=== PATIENT | female | born 1940 | race Caucasian/White ===

== ENCOUNTER 2017-03-15 08:55 | Inpatient (IN) | payer OTHER, MEDICARE ==
[~2017-03-15] VITALS: Ht 162.6 cm; Wt 72.3 kg
--- NOTE | 2017-03-15 09:28 | NUR ---
lab called and needs a redraw of the sst.
--- NOTE | 2017-03-15 09:28 | ED DYSPNEA/ASTHMA COMPLAINT ---
History of Present Illness General Chief Complaint: Dyspnea (COPD, CHF, Other) Stated Complaint: sob Source: patient, old records, EMS Exam Limitations: no limitations Vital Signs & Intake/Output Vital Signs & Intake/Output Vital Signs Date Time Temp Pulse Resp B/P B/P Pulse O2 O2 Flow FiO2 Mean Ox Delivery Rate 03/15 1451 97.6 64 20 143/73 94 Nasal 1.0L Cannula 03/15 1235 98.0 74 20 157/82 93 Nasal 1.0L Cannula 03/15 1035 97.1 82 18 162/72 94 Nasal 2.0L Cannula 03/15 0931 92 Nasal 4.0L Cannula 03/15 0924 97.0 104 22 170/84 92 Nasal 4.0L Cannula Allergies Coded Allergies: MDX - Broccoli (BROCCOLI) (UNKNOWN 02/11/14) MDX - Cabbage (CABBAGE) (UNKNOWN 02/11/14) MDX - [place] (CUCUMBER) (UNKNOWN 02/11/14) Reconcile Medications Carvedilol 25 MG TABLET 1 TAB PO BID BP (Reported) Diltiazem HCl (Cardizem Cd) 240 MG CAP.ER.24H 1 CAP PO DAILY HTN (Reported) Estradiol (Estrace) 0.01 % CREAM.APPL 1 GM VG QW HORMONE (Reported) Rivaroxaban (Xarelto) 20 MG TABLET 1 TAB PO DAILY BLOOD THINNER (Reported) with food Sitagliptin Phos/Metformin HCl (Janumet 50-1,000 MG Tablet) 50 MG-1,000 MG TABLET 1 TAB PO BID SUGAR (Reported) Triage Nurses Notes Reviewed? yes Onset: Abrupt Duration: hour(s):, continues in ED, waxing and waning Severity: severe Activities at Onset: rest Prior Episodes/Possible Cause: occasional episodes Modifying Factors: Improves With: other (EXERTION). HPI: Patient presents for evaluation of shortness of breath and chest pain that began with a cough productive of nonbloody yellow sputum last night. She also had a runny nose and fever but no GI symptoms. Patient states her chest pain is "in the center" of her chest. Patient symptoms have been constant and moderate to severe and get worse with exertion. Past History Travel History Traveled to [place] past 21 day No Medical History Any Pertinent Medical History? see below for history History of MRSA: No History of VRE: No History of CDIFF: No Pneumonia Vaccine: 08/26/12 Influenza Vaccine: 09/15/13 Surgical History Surgical History: non-contributory Psychosocial History Who do you live with Spouse Services at Home None What is your primary language Upper Sorbian Tobacco Use: Never used Family History Family History, If Any: MOTHER ([place] at age of 55). Relation not specified for: FH: myocardial infarction Hx Contributory? No Review of Systems Review of Systems Constitutional: Reports: no symptoms. EENTM: Reports: no symptoms. Respiratory: Reports: see HPI. Cardiovascular: Reports: see HPI. GI: Reports: no symptoms. Genitourinary: Reports: no symptoms. Musculoskeletal: Reports: no symptoms. Skin: Reports: no symptoms. Neurological/Psychological: Reports: no symptoms. Hematologic/Endocrine: Reports: no symptoms. Immunologic/Allergic: Reports: no symptoms. All Other Systems: Reviewed and Negative Physical Exam Physical Exam Respiratory: SEE BELOW Comments: Gen.: Well-nourished, well-developed, no acute respiratory distress. Head: Normocephalic, atraumatic. Eyes: Normal inspection bilaterally Ears: Normal inspection bilaterally Nose: Normal inspection Throat/mouth : Moist mucosa Neck: Supple, full range of motion, no goiter Heart: Distant heart sounds but otherwise IRRegular rate and rhythm, no murmurs rubs or gallops Lungs: Bibasilar crackles, particularly posteriorly, with diminished air entry globally Chest: Nontender Back: Normal range of motion Abdomen: Soft, nontender, nondistended, normal bowel sounds Extremities: Normal range of motion grossly, equal radial pulses, no cyanosis clubbing or edema,calves non tender Neurologic: Cranial nerves grossly intact, speech is clear Skin: warm and dry Psychiatric: Calm, cooperative, no apparent delusions or hallucinations Core Measures ACS in differential dx? No Severe Sepsis Present: No Septic Shock Present: No Progress Differential Diagnosis: asthma, AMI, bronchitis, CHF, COPD, pulmonary embolism, pneumonia, pneumothorax, unstable angina Plan of Care: Orders Procedure Date/time Status Heart Healthy Diet 03/15 D Active Patient Data 03/15 1533 Active Admit to inpatient 03/15 1527 Active Add-on Test (ER Only) 03/15 0927 Active D-DIMER 03/15 0910 Complete B-TYPE NATRIURETIC PEP (BNP) 03/15 0910 Complete EKG 03/15 0910 Active BLOOD CULTURE 03/15 0909 Active TROPONIN LEVEL 04/20 0909 Complete COMPREHENSIVE METABOLIC PANEL 03/15 909 Complete CBC WITHOUT DIFFERENTIAL 03/15 909 Complete Laboratory Tests 03/15/17940: Anion Gap 12, Estimated GFR > 60, BUN/Creatinine Ratio 20.0, Glucose 405 H, Calcium 9.1, Total Bilirubin 1.3, AST 23, ALT 38, Alkaline Phosphatase 117, Troponin I < 0.01, Anm-A-Sgmeqwddwsm Pept 2980 H, Total Protein 6.9, Albumin 3.8, Globulin 3.1, Albumin/Globulin Ratio 1.2 03/15/17913: CBC w Diff NO MAN DIFF REQ, RBC 4.83, MCV 84.7, MCH 29.2, RDW 14.5, MPV 9.1, Gran % 84.4 H, Lymphocytes % 9.9 L, Monocytes % 4.3, Eosinophils % 1.4, Basophils % 0 L, Absolute Granulocytes 10.1 H, Absolute Lymphocytes 1.2, Absolute Monocytes 0.5, Absolute Eosinophils 0.2, Absolute Basophils 0, PUBS MCHC 34.5 03/15/17909: D-Dimer < 200 Microbiology 03/15 914 BLOOD: Blood Culture - RECD 03/15 910 BLOOD: Blood Culture - RECD Diagnostic Imaging: Discussed w/RAD: Radiology Read. CXR Impression: PATIENT: TOMMY BECKWITH PRESENT AGE: 76 PATIENT ACCOUNT NO: [id number] : 40 LOCATION: [facility] ORDERING PHYSICIAN: MARION BERMUDEZ MD SERVICE DATE: 03/15/17 EXAM TYPE: RAD - XRY-PORTABLE CHEST XRAY EXAMINATION: XR PORTABLE CHEST CLINICAL INFORMATION: Dyspnea and cough. COMPARISON: 02/13/2014 TECHNIQUE: Portable AP view of the chest was obtained. FINDINGS: Left chest wall 3-lead AICD/pacer remains in place. Low lung volumes. Central vascular prominence without overt edema. No pleural effusion or pneumothorax. The cardiomediastinal silhouette remains prominent, with a calcified aorta. IMPRESSION: Central vascular prominence without overt edema. DICTATED BY: LOGAN DAVIES,BALDEMAR DATE/TIME DICTATED:03/15/17949 PHYSICIAN/INTERNIST:BELLO DATE/TIME TRANSCRIBED:03/15/17949 CONFIDENTIAL, DO NOT COPY WITHOUT APPROPRIATE AUTHORIZATION. <Electronically signed in Other Vendor System> SIGNED BY: LOGAN DAVIES,BALDEMAR 03/15/17 0954 Initial ED EKG: AFIB, nonspecific ST T wave chg Prior EKG: unchanged Comments: 03/15/2017 11:26:36 AM I have updated and on her test results. She feels well with the oxygen. I have weaned to 1 L/m (her oxygen saturation currently 92%). Furosemide has been ordered. She is quite conversant at this point and is agreeable to returning home once she begins to diurese. 03/15/2017 1:00:16 PM patient feels well with oxygen saturation 93% on 1 L nasal cannula. I have discontinued her oxygen. She states that she has diuresed considerably while here in the emergency department. Plan ambulatory pulse ox and final disposition. Departure Departure Disposition: STILL A PATIENT Condition: Stable Clinical Impression Primary Impression: CHF (congestive heart failure) Qualifiers: Congestive heart failure type: unspecified congestive heart failure type Congestive heart failure chronicity: acute Qualified Code: I50.9 - Heart failure, unspecified Referrals: LIZA DAVIES,MYL (PCP/Family) Departure Forms: Customer Survey General Discharge Information Admission Note Spoke With: WAYNE DAVIES,ZI Rincon Documentation of Exam: Documentation of any treatments & extenuating circumstances including Concerns Regarding Discharge (functional status, medication knowledge or non-compliance, living conditions, etc.) that warrant an admission rather than observation: Patient has congestive heart failure with hypoxia on room air. She becomes dyspneic with exertion. I feel she is a poor candidate for outpatient management given her exertional dyspnea. I feel compliance with outpatient treatment could cause worsening dyspnea, hypoxia, chest pain or respiratory failure. She was treated with diuretics in the emergency department but is still oxygen dependent. I feel she now requires hospitalization with oxygen supplementation to maintain normal oxygen saturations. I feel she also requires serial troponins and EKGs and monitoring of intake and output. A negative fluid balance should be assured and cardiology consultation should be considered. Given this patient's advanced age and medical comorbidities I feel her treatment will be prolonged and likely complicated. I predict she will require a multiple day hospitalization. Critical Care Note Critical Care Note Critical Care Time: 30-74 min
--- NOTE | 2017-03-15 09:37 | NUR ---
76 YEAR OLD FEMALE TO ER VIA AMBULANCE FROM [facility] FOR SUDDEN ONSET THIS AM OF SOB. PT ALERT AND ORIENTED , STATES THAT SHE STARTED WITH COUGH PRODUCTIVE OF YELLOW SPUTUM LAST PM, WAS UP ALL NIGHT COUGHING, PT AFEBRILE AT THIS TIME TEMP 97.0, PT ARRIVED ON 4L O2 VIA NC AND O2 SAT 92 % , PT IS NOT O2 DEPENDENT AT HOME. 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 NIDDM FINGERSTICK 413. ON EMS ARRIVAL TO PTS HOME SHE COMPLAINED OF HAVING NON RADIATING MID CHEST PAIN, DENIES CP AT THIS TIME.
[2017-03-15 09:43] LABS: ABSOLUTE BASOPHIL COUNT 0 /CUMM (0.0-0.2); ABSOLUTE EOSINOPHIL COUNT 0.2 /CUMM (0.0-0.7); ABSOLUTE GRANULOCYTE CT 10.1 /CUMM (1.4-6.5); ABSOLUTE LYMPH COUNT 1.2 /CUMM (1.2-3.4); ABSOLUTE MONOCYTE COUNT 0.5 /CUMM (0.10-0.60); BASOPHIL % 0 % (0.0-2.0); EOSINOPHIL % 1.4 % (0-5); GRANULOCYTE % 84.4 % (42.2-75.2); MEAN CORPUSCULAR HGB 29.2 PG (27.0-31.0); MEAN CORPUSCULAR HGB CONC 34.5 G/DL (33.0-37.0); MEAN CORPUSCULAR VOLUME 84.7 FL (81.0-99.0); MEAN PLATELET VOLUME 9.1 FL (7.4-10.4); PLATELET COUNT 254 /CUMM (130-400); RBC DISTRIBUTION WIDTH 14.5 % (11.5-14.5); RED BLOOD CELL CT 4.83 /CUMM (4.20-5.40)
--- NOTE | 2017-03-15 09:44 | NUR ---
LABS DRAWN AND SENT BY THIS [facility]ST BLUE, SST, LAV, CROFT
--- NOTE | 2017-03-15 09:45 | NUR ---
PT. PROVIDED WITH CUP OF ICE WATER, OK PERCasi BERMUDEZ
--- NOTE | 2017-03-15 09:54 | RADIOLOGY REPORT ---
EXAMINATION: XR PORTABLE CHEST CLINICAL INFORMATION: Dyspnea and cough. COMPARISON: 02/13/2014 TECHNIQUE: Portable AP view of the chest was obtained. FINDINGS: Left chest wall 3-lead AICD/pacer remains in place. Low lung volumes. Central vascular prominence without overt edema. No pleural effusion or pneumothorax. The cardiomediastinal silhouette remains prominent, with a calcified aorta. IMPRESSION: Central vascular prominence without overt edema.
--- NOTE | 2017-03-15 10:30 | NUR ---
PT AWAKE AND ALERT, ASKING WHEN SHE WILL BE ABLE TO GO HOME, DENIES CP, AFIB ON MONITOR HR 80-104, OXYGEN DECREASED TO 2L VIA NC AND O2 SAT 94 % AT THIS TIME.
--- NOTE | 2017-03-15 12:40 | NUR ---
PT RESTING ON STRETCHER , COMPLAINS THAT SHE HAS BEEN UP TO COMMODE 5 TIMES URINATING. O2 SAT 93 % ON 1L VIA NC, DENIES FEELING SOB AT THIS TIME.
[2017-03-15] MEDS ORDERED: JANUMET 50-1,01 EACH PO (12:42)
[2017-03-15] MEDS ORDERED: CARDIZEM CD240 M1 PO (12:43)
[2017-03-15] MEDS ORDERED: CARVEDILOL25 M1 PO (12:45)
[2017-03-15] MEDS ORDERED: ESTRACE42.5 GM VG (12:45)
[2017-03-15] MEDS ORDERED: XARELTO20 M2 PO (12:46)
--- NOTE | 2017-03-15 13:17 | NUR ---
02 SAT 90-9 % WITHOUT OOXYGEN.
--- NOTE | 2017-03-15 13:17 | NUR ---
OXYGEN REMOVED BY DR. BERMUDEZ @ 1300.
--- NOTE | 2017-03-15 13:25 | NUR ---
AMBULATED IN SIEGEL (APPROXIMATELY 50 FEET, WITHOUT 02). 02 SAT 88-90%,C/O DIZZINESS WITH WALKING.
--- NOTE | 2017-03-15 13:43 | NUR ---
DR BERMUDEZ AT BEDSIDE TO DISCUSS PLAN OF CARE WITH PT , PT AWARE THAT SHE IS TO BE ADMITTED TO HOSPITAL.
--- NOTE | 2017-03-15 13:56 | NUR ---
PT VOIDED 2800 CC ON COMMODE, CLEAR YELLOW URINE. PT SITTING UP ON STRETCHER WITH FOOD MENU.
--- NOTE | 2017-03-15 14:51 | NUR ---
PT AWAKE ALERT AND ORIENTED, DENIES FEELING SOB AT REST, O2 SAT 94 % ON 1L VIA NC. STATES THAT SHE DOES GET SOB WHEN SHE GETS UP TO COMMODE. AFIB ON MONITOR WITH HR 64. PT AWARE THAT WE ARE WAITING ON ROOM ASSIGNMENT AT THIS TIME
--- NOTE | 2017-03-15 15:27 | NUR ---
ASSUMED CARE OF PT, PT RESTING COMFORTABLY ON STRETCHER, CRACKLES HEARD IN LLL, ALL OTHER LUNG JEFFERSON CTA. PT DENIES ANY CP, NAUSEA, VOMITING. REPORTING DYSPNEA CONTINUES WHEN AMBULATING UP AND DOWN FROM STRETCHER TO BEDSIDE COMMODE. REPORTING THAT SOB HAS IMPROVED GREATLY SINCE VOIDING APPROX 3 L OF URINE AFTER IV LASIX.
--- NOTE | 2017-03-15 15:40 | NUR ---
HEART HEALTHY DINNER TRAY ORDERED AND DIET ORDER PLACED PER DR BERMUDEZ
--- NOTE | 2017-03-15 17:04 | NUR ---
BED ASSIGNMENT [id number]
[2017-03-15] MEDS ORDERED: DIOVAN320 M1 PO (17:09)
--- NOTE | 2017-03-15 17:10 | History & Physical ---
ALEC ZABALA MD 03/15/17 0994: General Information and HPI MD Statement: I have seen and personally examined TOMMY BECKWITH Niels and documented this H&P. The patient is a 76 year old F who presented with a patient stated chief complaint of [shortness of breath]. Source of Information: patient, old records, EMS Exam Limitations: no limitations History of Present Illness: Patient is a 76 YO F with PMH significant for Dilated nonischaemic cardiomyopathy (EF 20-25% - 02/11/14), Medtronic biventricular AICD (jul 2009), CHF, Persistent AF (on xarelto), CAD, Diabetes mellitus came to the ER today with sudden onset of shortness of breath at rest this morning. She was well till yesterday night when she developed cough with yellowish phlegm production which made her sleepless throughout that night. Today morning she suddnely developed shortness of breath, chest heaviness (few mins), wheezing at rest while watching TV. She came to ER followed by that. She recently came from [place] 1-1/2 week ago (spent entire winter in [place]). At baseline she had shortness of breath and chest heaviness with exertion ( such as taking stairs), resolves with rest, 2 Pillow orthopnea. By the time she reached ER her chest heaviness resolved, still short of breath. She received a single dose of lasix 40mg IV which made her symptoms much better. She reports she urinated well after the medication given. Denies any nausea, vomiting, dizziness, lightheadedness, fainting episodes, heart racing. Allergies/Medications Allergies: Coded Allergies: MDX - Broccoli (BROCCOLI) (UNKNOWN 02/11/14) MDX - Cabbage (CABBAGE) (UNKNOWN 02/11/14) MDX - [place] (CUCUMBER) (UNKNOWN 02/11/14) Home Med list Carvedilol 25 MG TABLET 1.5 TAB PO BID BP (Reported) Diltiazem HCl (Cartia Xt) 240 MG CAP.ER.24H 1 TAB PO DAILY afib (Reported) Estradiol (Estrace) 0.01 % CREAM.APPL 1 GM VG QW HORMONE (Reported) Furosemide (Lasix) 20 MG TABLET 1 TAB PO BID CHF (Reported) Glimepiride (Amaryl) 4 MG TABLET 1 TAB PO DAILY DM (Reported) Rivaroxaban (Xarelto) 20 MG TABLET 1 TAB PO AT BEDTIME afib (Reported) with food Sitagliptin Phos/Metformin HCl (Janumet 50-1,000 MG Tablet) 50 MG-1,000 MG TABLET 1 TAB PO BID SUGAR (Reported) Valsartan (Diovan) 320 MG TABLET 1 TAB PO DAILY htn (Reported) Compliance With Home Meds: GOOD Past History Travel History Traveled to [place] past 21 day No Medical History Neurological: NONE EENT: NONE Cardiovascular: AFIB, CHF, hypertension, hyperlipidemia Respiratory: NONE Gastrointestinal: NONE Hepatic: NONE Renal: NONE Musculoskeletal: NONE Psychiatric: NONE Endocrine: diabetes Blood Disorders: DVT Cancer(s): NONE WATER PUMP SERVICER/Reproductive: NONE History of MRSA: No History of VRE: No History of CDIFF: No Surgical History Surgical History: non-contributory Past Family/Social History Family History Relations & Conditions if any MOTHER ([place] at age of 55). Relation not specified for: FH: myocardial infarction Psychosocial History Where do you live? Home Who Do You Live With? spouse Services at Home: None Smoking Status: Never Smoked ETOH Use: every day a glass of wine Illicit Drug Use: denies illicit drug use Functional Ability ADLs Independent: dressing, eating, toileting, bathing. Ambulation: independent IADLs Independent: shopping, housework, finances, food prep, telephone, transportation , medication admin. Review of Systems Review of Systems Constitutional: Reports: see HPI. Cardiovascular: Reports: orthopena. Respiratory: Reports: cough, short of breath, sputum production. GI: Reports: see HPI. Genitourinary: Reports: see HPI. Musculoskeletal: Reports: see HPI. Comments ROS negative except the above. Exam & Diagnostic Data Last 24 Hrs of Vital Signs/I&O Vital Signs Date Time Temp Pulse Resp B/P B/P Pulse O2 O2 Flow FiO2 Mean Ox Delivery Rate 03/15 1451 97.6 64 20 143/73 94 Nasal 1.0L Cannula 03/15 1235 98.0 74 20 157/82 93 Nasal 1.0L Cannula 03/15 1035 97.1 82 18 162/72 94 Nasal 2.0L Cannula 03/15 0931 92 Nasal 4.0L Cannula 03/15 0924 97.0 104 22 170/84 92 Nasal 4.0L Cannula Intake & Output 03/15 1600 03/15 0800 03/15 0000 Intake Total 500 Output Total 2800 Balance -2300 Intake, Oral 500 Output, Urine 2800 Patient 77.111 kg Weight Physical Exam General Appearance Alert, Oriented X3, Cooperative, Mild Distress Skin No Rashes, No Breakdown HEENT Atraumatic, PERRLA, EOMI Neck JVD present Cardiovascular Normal S1, Normal S2, No Murmurs Lungs Normal Air Movement, mild bibasilar crackles present Abdomen Normal Bowel Sounds, Soft, No Tenderness Neurological Normal Gait, Normal Speech, Strength at 5/5 X4 Ext, Normal Tone Extremities No Clubbing, No Cyanosis, edema present Vascular Normal Pulses, Pulses Symmetrical Last 24 Hrs of Labs/Wagner: Laboratory Tests 03/15/17 1707: Troponin I < 0.01 03/15/17 0941: Anion Gap 12, Estimated GFR > 60, BUN/Creatinine Ratio 20.0, Glucose 405 H, Calcium 9.1, Total Bilirubin 1.3, AST 23, ALT 38, Alkaline Phosphatase 117, Troponin I < 0.01, Htd-F-Coegautjnyw Pept 2980 H, Total Protein 6.9, Albumin 3.8, Globulin 3.1, Albumin/Globulin Ratio 1.2, TSH Pending, Free T4 1.37 03/15/17 0914: CBC w Diff NO MAN DIFF REQ, RBC 4.83, MCV 84.7, MCH 29.2, RDW 14.5, MPV 9.1, Gran % 84.4 H, Lymphocytes % 9.9 L, Monocytes % 4.3, Eosinophils % 1.4, Basophils % 0 L, Absolute Granulocytes 10.1 H, Absolute Lymphocytes 1.2, Absolute Monocytes 0.5, Absolute Eosinophils 0.2, Absolute Basophils 0, PUBS MCHC 34.5 03/15/17 0910: D-Dimer < 200 Microbiology 03/15 914 BLOOD: Blood Culture - RECD 03/15 910 BLOOD: Blood Culture - RECD Diagnostic Data EKG Results Atrial Fibrillation with HR 111 QTc 522 CXR Results IMPRESSION: Central vascular prominence without overt edema. Assessment/Plan Assessment: Patient is a 76 YO Diabetic Female with PMH significant for Dilated nonischaemic cardiomyopathy (EF 20-25% - 02/11/14), AICD, AF presented to ER with Dyspnea and chest heaviness. ER Course VS Afebrile, [place] 104, RR 22, BP 170/84mmHg, on 4L oxygen initially (later came down to 1L with diuresis) Significant labs include Blood glucose 405, ProBNP 2980, K of 3.9. CXR shows Central vascular prominence without overt edema. Last ECHO - 02/11/14 LVEF 20-25% with anterior wall, anteroseptum, and inferoapex are akinetic, remaining gonzales moderately hypokinetic. RVSP >50mmHg. Plan Admitted to telemetry floor Acute decompensated congestive heart failure * Serail Trops and EKG's X 3 to rule out ischaemic event, TSH and freeT4. * Received a single dose of 40mg IV lasix in ER - we will continue diuresisg her with IV diuretics for now (home lasix 20mg BID PO) * ECHO * 2 gm sodium diet, Strict In's and Out's, daily weight. H/o nonischaemic cardiomyopathy (last EF 20-25%) with AICD in place * On carvedilol 37.5mg BID, Losartan 100mg daily - we will continue them for now. Persistent Atrial Fibrillation * On xarelto for anticoagulation and Cardizem 240mg ER for rate control - we will continue for now Uncontrolled diabetes Her sugars in ER are in 400's, reports compliant with medications * would check HbA1C * Novolog sliding scale and accuchecks DVT prophylaxis * On xarelto Code Status * Full Code As Ranked By This Provider Problem List: 1. Atrial fibrillation 2. Diabetes 3. CHF (congestive heart failure) Qualifiers Congestive heart failure type: unspecified congestive heart failure type Congestive heart failure chronicity: acute Qualified Code: I50.9 - Heart failure , unspecified 4. Systolic CHF, acute on chronic Core Measures/Miscellaneous Acute Coronary Syndrome ACS Diagnosis: No Cerebrovascular Accident CVA/TIA Diagnosis: No Congestive Heart Failure CHF Diagnosis: No Venous Thromboembolism VTE Risk Factors: Immobility, paresis No [facility] VTE prophylaxis d/t: No contraindications No VTE Pharm Prophylaxis d/t: No contraindications VTE Diagnosis: No VTE Type: NONE VTE Confirmed by (Test): NONE Severe Sepsis Severe Sepsis Present: No Septic Shock Septic Shock Present: No Miscellaneous Documentation Attending Case Discussed With: IZ BLACK MD Primary Care Physician: LIZA DAVIES,MYL Patient sees these Specialists Level of Patient Care: Telemetry STUART MCLAIN MD 03/15/17 1806: Resident Review Statement Resident Statement: examined this patient, discussed with business management intern, agreed with business management intern, reviewed EMR data (avail), reviewed images, amended to note Other Findings: This is 76-year-old female this is 76-year-old female with past medical history of known ischemic cardiomyopathy with EF of 20-25% status post Medtronic BiV AICD, chronic atrial fibrillation on Xarelto, type 2 diabetes presented from home with chief complaint of acute onset shortness of breath associated with cough and an episode of chest pain. Patient was in her usual health up until yesterday evening. Last night all of a sudden she started having dry cough which kept her up all throughout the night. She also reported occasional yellowish sputum production. Patient was not able to sleep due to persistent cough, regularly she uses 2 pillows for sleep. This morning around 8 AM after taking all her blood pressure medication, when she was watching TV all of a sudden she got significantly short of breath, which exacerbated on minimal exertion/ambulation and had an episode of chest heaviness which lasted for about 10 minutes and subsided spontaneously. Patient remained short of breath and that point she called her daughter called EMS and was brought in to ER for further evaluation. On arrival patient noted short of breath and was put in 2 L supplemental O2 with saturation of around 90-92%. Chest x-ray was done which showed central vascular prominence and patient received 40 mg IV Lasix with significant diuresis of about 2.5 L. On evaluation patient noted in no acute distress complaining of shortness of breath only on ambulation but denied any chest pain, pressure, palpitation, dizziness, lightheadedness, orthopnea, nausea, vomiting, abdominal pain or cough. Patient reports avoiding salt in her diet and denies any medicine noncompliance. Denies any significant weight gain or leg swelling. Her vitals on admission were T 97, HR 104, RR 22, BP 170/84, O2 sat 92% on 2 L On physical exam patient is alert oriented 3 in no acute distress, HEENT PERRLA EOMI, neck supple, noted elevated JVD of 8-9 cm, heart S1-S2 normal without murmur, lungs noted faint basilar crackles, abdomen soft nontender nondistended with preserved bowel sounds, no peripheral edema, no focal gross neuro deficit. Labs were significant for leukocytosis of 12,000 with granulocytes of 86%, H&H 14.1/41, K3.9, NA 138, BUN 12, cr. 0.6, blood glucose 405, AG 12, trop negative, BNP 2980. D-dimer less than 200 EKG showed A. fib at rate of 111, normal axis, no acute ST-T changes Echo done on 02/11/2014 revealed anterior, anteroseptal, inferolateral the pedicle akinesia with remaining wall moderate hypokinesia, LVEF of 20-25%, RVSP more than 50 Chest x-ray revealed central vascular prominence without overt edema Assessment and plan: This is 76 year female with past medical history of nonischemic CMP (EF 20-25%) s/p Medtronic BiV AICD, chronic A. fib, type 2 diabetes presented with sudden onset of shortness of breath associated with chest pressure-like symptoms and cough found to have central vascular prominence on chest x-ray and on exam elevated JVD with faint crackles (after significant diuresis in ER) admitted for acute CHF exacerbation. 1. Acute CHF exacerbation - Admit to telemetry - Patient denied any diet or medicine noncompliance - Rule out underlying ischemic coronary event with serial troponin and EKG - Echocardiogram in a.m. - Continue IV Lasix 40 mg daily, patient received 40 mg in ER with significant diuresis (2.8 L) - Strict MORRO's, daily weight 2. Nonischemic cardiomyopathy s/p BiV AICD - Continue home dose beta lanre, ARB 3. Chronic A. fib -Continue rate control with beta lanre and calcium channel lanre - Continue anticoagulation with Xarelto 20 mg daily - Patient noted in rate control 4. Type 2 diabetes with hyperglycemia - Hold oral hypoglycemic agent - Check HbA1c - Start NovoLog sliding scale - If blood sugar remains uncontrolled consider endocrinology consult 5. DVT prophylaxis On Xarelto 6. Full code WILLIAM DAVIES,[facility] 03/16/17 1310: Attending MD Review Statement Attending Statement Attending MD Statement: examined this patient, discuss w/resident/PA/GRINDING MACHINE TENDER, reviewed EMR data (avail), reviewed images, amended to note (see my note)
--- NOTE | 2017-03-15 17:32 | NUR ---
PT MEDICATED WITH NOVOLOG FOR BG 282.
[2017-03-15] MEDS ORDERED: CARTIA XT240 M1 PO (17:33)
--- NOTE | 2017-03-15 17:48 | PN- Student ---
Subjective Subjective: HPI: 76 year-old female with PMH of dilated non-ischemic cardiomyopathy, AICD implanted in 2009, CHF, atrial fibrillation, CAD, and DM BIBA presents to ED with chief complaint of shortness of breath and an episode of heavy feeling in chest. Shortness of breath began suddenly this morning at 8:00am while patient was sitting and watching TV. Shortness of breath was associated with wheezing. Shortly thereafter, patient notes she had feeling of heaviness in the center of her chest which was constant, non-radiating, and lasted for about 10 minutes. Last night, patient had a productive cough with nonbloody yellow phlegm that was constant throughout the night and stopped once the patient woke up this morning. Patient did not take any medications to relieve shortness of breath, chest heaviness, or cough. Exertion, such as when using the commode, makes the shortness of breath worse. At baseline, patient sleeps with two pillows at night and has had trouble walking up stairs "for years" due to shortness of breath. ROS: Currently denies chest pain, dizziness, fever/chills, nausea/vomiting, recent illness/upper respiratory infection, sick contacts. Past Medical History: -Hypertension -Diabetes -Atrial fibrillation -Non-ischemic cardiomyopathy Allergies: broccoli, cabbage, cucumber Social History: -No smoking history -Drinks one large glass of wine each night -Denies illicit drug use - with three children. Lives at home with with no health/home services. Travel History: Returned 1.5 weeks ago to [place] from spending the winter in [place]. Family History: -: healthy -Father: atherosclerosis, -Mother: atrial fibrillation, myocardial infarction x6, Medications: Losartan 100mg QDAY Carvedilol 37.5mg BID Diltiazem 240mg QDAY Rivaroxaban 20mg QHS Diovan 320mg QDAY Sitagliptin/Metformin HCl BID Objective Objective: Vital Signs Date Time Temp Pulse Resp B/P B/P Pulse O2 O2 Flow FiO2 Mean Ox Delivery Rate 03/15 1945 Nasal 2.0L Cannula 03/15 1937 98.2 62 20 140/68 95 Nasal 2.0L Cannula 03/15 1823 98.0 61 18 144/65 94 Nasal 1.0L Cannula 03/15 1451 97.6 64 20 143/73 94 Nasal 1.0L Cannula 03/15 1235 98.0 74 20 157/82 93 Nasal 1.0L Cannula 03/15 1035 97.1 82 18 162/72 94 Nasal 2.0L Cannula 03/15 0931 92 Nasal 4.0L Cannula 03/15 0924 97.0 104 22 170/84 92 Nasal 4.0L Cannula Intake & Output 03/15 1600 03/15 0800 04 0000 Intake Total 500 Output Total 2800 Balance -2300 Intake, Oral 500 Output, Urine 2800 Patient 170 lb Weight Physical Exam: General: cooperative, well-nourished, well-developed, in no acute distress Eyes: PERRLA, EOMI Neck: JVD 8-9cm Lung: normal air movement, faint crackles heard Heart: S1, S2, no murmurs, rubs, or gallops Abdomen: bowel sounds heard, soft, non-tender, no masses Neuro: normal speech, strength 5/5 in all 4 extremities Extremities: no cyanosis, clubbing, or edema On 1L oxygen via nasal canula Results Results: Labs: showed increased WBCs at 12,000 with granulocytes of 86%, blood glucose 405, troponin I negative EKG: irregularly irregular rhythm, rate 111 Imaging: -Chest x-ray shows central vascular prominence without overt edema -Echocardiogram in 2014 shows LVEF 20-25%, with anterior wall, anteroseptum, and inferoapex akinetic, with remaining gonzales moderately hypokinetic. RVSP>50mmHg. Assessment/Plan Assessment: This is a 76 year-old female with PMH of of dilated non-ischemic cardiomyopathy, AICD implanted in 2008, CHF, atrial fibrillation, CAD, and DM presenting to ED with shortness of breath and chest heaviness. Patient's chest heaviness resolved after 10 minutes and shortness of breath improved on 4L oxygen nasal canula. Currently, patient feels well on 1L nasal canula. Differential diagnosis: -Acute CHF exacerbation: -Patient has dyspnea, decreased tolerance walking up stairs -Faint crackles hear on lung exam, JVD present -Echocardiogram in 2014 showed ejection fraction 20-25% -Elevated BNP at 2980 -Cardiac ischemic event ([place], unstable angina): -Less likely as there is no elevation in troponin I -EKG shows no ST elevation or depression -Pulmonary embolism: -Patient has dyspnea, heavy feeling in chest, but denies pleuritic chest pain -Less likely as D-dimer is less than 200 -Pulmonary disease: -Had dyspnea with wheezing -Non-smoker, no previous diagnoses of pulmonary disease -Infectious etiology, such as pneumonia: -Less likely with acute onset, patient afebrile, cough that only lasted for 1 night Plan: For possible acute CHF exacerbation: -Admit to telemetry floor for continuous cardiac and oxygen saturation monitoring -Received single dose of furosemide 40mg IV in ED, which improved her symptoms -Will continue furosemide 40mg IV daily and monitor symptoms -Echocardiogram ordered for tomorrow- patient's had last echocardiogram in 2013 For possible cardiac ishemic event: -Serial troponin and EKGs to rule out ischemic event. An elevation in troponin may not be detectable for up to 12 hours after initial presentation. For non-ischemic cardiomyopathy, atrial fibrillation: -Continue home medications of carvedilol, losartan, rivaroxaban, and diltiazem For diabetes mellitus: -Check HbA1c due to elevated blood glucose at presentation -Patient will need to follow-up with primary care physician after discharge to evaluate blood sugar control -Continue insulin aspart before meals
--- NOTE | 2017-03-15 17:57 | NUR ---
REPORT TO ANY SARAH ON TELE.
--- NOTE | 2017-03-15 18:23 | NUR ---
TRANSPORT CALLED, PT PLACED ON SHIPPING AND RECEIVING, AWAITING TRANSPORT. DAUGHTER AT BEDSIDE.
[2017-03-15] MEDS ORDERED: LASIX20 M1 PO (19:15)
[2017-03-15] MEDS ORDERED: AMARYL4 M1 PO (19:16)
[2017-03-15 19:37] VITALS: BP 140/68
[2017-03-16 00:03] VITALS: BP 126/60
--- NOTE | 2017-03-16 05:09 | NUR ---
PT HAD FOUR BEAT RUN. THIS RN CHECKED ON PT. PT DOING WELL. AWARE. BLOOD DRAWN AND SENT TO LAB. WILL CONTINUE TO MONITOR
--- NOTE | 2017-03-16 07:08 | NUR ---
APPX 0615, PT HAD 15 BEAT RUN. RN ENTERED ROOM. PT WAS STANDING UP REARRANGING HER BELONGINGS AND DOING WELL. MD NOTIFIED. POTASSIUM AND MAGNESIUM ORDERED. POTASSIUM GIVEN, MG CURRENTLY RUNNING. WILL CONTINUE TO MONTIOR AND NOTIFY NEXT SHIFT'S NURSE.
--- NOTE | 2017-03-16 07:37 | PN- Housestaff ---
SAGRARIO DAVIES,ALEC 03/16/17 0736: Subjective Follow-up For: Acute decompensated congestive heart failure Tele-Events Since Last Visit: Atrial Fibrialltion 61-83bpm 15 beat v.tach at 6:15am Subjective: I saw and examined the patient today morning She is doing much better, denies any shortness of breath, chest pain, dizziness. Still on 2L NC. Offers no complaints. Upon further asking about cholesterol medications reports that she felt she is taking many medications and stopped it by herself. Review of Systems Constitutional: Reports: see HPI. Comments: ROS negative except the above. Objective Last 24 Hrs of Vital Signs/I&O Vital Signs Date Time Temp Pulse Resp B/P B/P Pulse O2 O2 Flow FiO2 Mean Ox Delivery Rate 03/16 0003 98.7 66 20 126/60 95 Nasal Cannula 03/16 0000 Nasal 1.5L Cannula 03/15 2137 70 124/60 03/15 1945 Nasal 2.0L Cannula 03/15 1937 98.2 62 20 140/68 95 Nasal 2.0L Cannula 03/15 1900 95 Nasal 1.5L Cannula 03/15 1823 98.0 61 18 144/65 94 Nasal 1.0L Cannula 03/15 1451 97.6 64 20 143/73 94 Nasal 1.0L Cannula 03/15 1235 98.0 74 20 157/82 93 Nasal 1.0L Cannula 03/15 1035 97.1 82 18 162/72 94 Nasal 2.0L Cannula 03/15 0931 92 Nasal 4.0L Cannula 03/15 0924 97.0 104 22 170/84 92 Nasal 4.0L Cannula Intake & Output 03/16 0800 03/16 0000 03/15 1600 Intake Total 240 270 500 Output Total 321 566 1600 Balance - Intake, IV 15 20 Intake, Oral 225 250 500 Number 0 Bowel Movements Output, Urine 872 241 2718 Patient 77.111 kg 77.111 kg Weight Physical Exam General Appearance: Alert, Oriented X3, Cooperative, No Acute Distress Skin: No Rashes, No Breakdown HEENT: Atraumatic, PERRLA, EOMI Neck: Supple Cardiovascular: Normal S1, Normal S2, No Murmurs Lungs: Clear to Auscultation, Normal Air Movement Abdomen: Normal Bowel Sounds, Soft, No Tenderness Neurological: Normal Gait, Normal Speech, Strength at 5/5 X4 Ext, Normal Tone, Sensation Intact Extremities: No Clubbing, No Cyanosis, scant edema Vascular: Normal Pulses, Pulses Symmetrical Current Medications: Current Medications Sig/Jaylin Start time Last Medication Dose Route Stop Time Status Admin Carvedilol 37.5 MG BID 03/15 2200 AC 03/15 PO 2137 Diltiazem HCl 240 MG DAILY 03/16 1000 AC PO Furosemide 40 MG DAILY 03/16 1000 AC IV Furosemide 0 .STK-MED ONE 03/15 1137 DC IV Furosemide 40 MG ONCE ONE 03/15 1130 DC 03/15 IV 03/15 1131 1137 Insulin Aspart 0 TIDAC 03/15 1700 AC SC Insulin Aspart 8 UNITS ONCE ONE 03/15 1700 DC 03/15 SC 03/15 1701 1732 Losartan Potassium 100 MG DAILY 03/16 1000 AC PO Magnesium Oxide 400 MG BID 03/16 1000 CAN PO 03/16 2201 Magnesium Sulfate 1 GM ONCE ONE 03/16 0730 AC Dextrose/Water 100 ML IV 03/16 1129 Magnesium Sulfate 1 GM ONCE ONE 03/16 0630 AC 03/16 Dextrose/Water 100 ML IV 03/16 0829 0633 Potassium Chloride 60 MEQ ONCE ONE 03/16 0630 DC 03/16 PO 03/16 0631 0641 Rivaroxaban 20 MG AT BEDTIME 03/15 2200 AC 03/15 PO 2134 Last 24 Hrs of Lab/Wagner Results Last 24 Hrs of Labs/Mics: Laboratory Tests 03/16/17 0455: Anion Gap 12, Estimated GFR > 60, BUN/Creatinine Ratio 17.1, Glucose 163 H, Magnesium 1.4 L, Triglycerides 132, Cholesterol 179, LDL Cholesterol, Calc 115, HDL Cholesterol 38 L, Cholesterol/HDL Ratio 5 H 03/15/17 2243: Troponin I < 0.01 Lines/Diet/Fluids Lines: peripheral lines Assessment/Plan Assessment: Patient is a 76 YO Diabetic Female with PMH significant for Dilated nonischaemic cardiomyopathy (EF 20-25% - 02/11/14), AICD, AF presented to ER with Dyspnea and chest heaviness. ER Course VS Afebrile, SD 104, RR 22, BP 170/84mmHg, on 4L oxygen initially (later came down to 2L with diuresis) Significant labs include Blood glucose 405, ProBNP 2980, K of 3.9. CXR shows Central vascular prominence without overt edema. Last ECHO - 02/11/14 LVEF 20-25% with anterior wall, anteroseptum, and inferoapex are akinetic, remaining gonzales moderately hypokinetic. RVSP >50mmHg. Plan Admitted to telemetry floor Acute decompensated congestive heart failure Most probable precipitant could be her acute illness(cough with phelgm production), resulting in sympathetic response and increased fluid redistribution ---> Peripheral cause (Afterload increased) * ruled out ischaemic and thyroid related causes. * Patient is still on 2L of oxygen (not on oxygen at home), so we will continue to diurese her with IV lasix. * Patient had a history of ischaemic cardiomyopathy so afterload should be low in order to have good cardiac output (already EF is low), so increasing her Carvedilol dose to 50mg BID (from 37.5mg BID). * Restarted on rosuvastatin 5mg (atorvastatin 20mg) today. * ECHO shows LVEF 25-30%, with severly reduced global left ventricular systolic function, severe TR, RVSP >50mmHg. * 2 gm sodium diet, Strict In's and Out's, daily weight. H/o nonischaemic cardiomyopathy (last EF 20-25%) with AICD in place She was on carvedilol 37.5mg BID, Valsartan 320mg daily at home * Pacermaker interrogated - infrequently in V.tach and not often paced. * She is not completely dependent on her pacemaker for now, so plan to decrease her heart rate so that she can be 100% dependent on her pacemaker - Increasing carvedilol dose to 50mg BID (decreases heart rate and afterload). Persistent Atrial Fibrillation * On xarelto for anticoagulation and Cardizem 240mg ER for rate control - we will continue for now. Uncontrolled diabetes mellitus Her sugars in ER are in 400's, reports compliant with medications * HbA1C is 9.8 -- Could be compliance issue. * Novolog sliding scale and accuchecks - still in 300's todaym, so increased to high dose sliding scale. * Needs education about diabetic diet, checking sugars at home. DVT prophylaxis * On xarelto Code Status * Full Code Problem List: 1. Atrial fibrillation 2. Diabetes 3. Hypercholesteremia 4. CHF (congestive heart failure) 5. Systolic CHF, acute on chronic 6. Full code status 7. DVT prophylaxis Pain Ratin Pain Location: ches pain/heaviness Pain Goal: Pain 4 or less Pain Plan: tylenol prn Tomorrow's Labs & Rationales: bep to monitor electrolytes and renal function WILLIAM DAVIESFORMERLY [facility] 03/16/17 1311: Attending MD Review Statement Attending Statement Attending MD Statement: examined this patient, discuss w/resident/PA/HELP DESK SPECIALIST, reviewed EMR data (avail), reviewed images, amended to note (see my note)
[2017-03-16 07:43] VITALS: BP 130/90
--- NOTE | 2017-03-16 11:01 | ECHOCARDIOGRAM REPORT ---
TOMMY BECKWITH Age: 76 : 1940 Gender: F Exam Date: 03/15/2017 18:49 Exam Location: 1 [address] Ht (in): 63 Wt (lb): 170 BSA: 1.88 BP: 143 / 73 Ordering Physician: STUART MCLAIN MD Referring Physician: Will Rabago MD Technologist: Alexandra Castaneda [facility] Room Number: [id number] Indications: HEART FAILURE Rhythm: Technical Quality: Fair FINDINGS Left Ventricle Mild left ventricular dilatation. Left ventricular wall thickness mildly increased. Severely reduced global left ventricular systolic function. Left ventricular ejection fraction is estimated at 25-30 Right Ventricle Normal right ventricular size and function. Catheter/pacemaker wire in the right ventricular cavity. Right Atrium Moderate right atrial dilatation. Left Atrium Moderate left atrial dilatation. Mitral Valve Mild mitral annular calcification. No mitral stenosis. Moderate to severe mitral regurgitation. Aortic Valve No aortic stenosis. Aortic sclerosis. Tricuspid Valve Structurally normal tricuspid valve. Aycvkiuc-bm-apubza tricuspid regurgitation. Right ventricular systolic pressure estimated to be elevated at > 50 mmHg. Pulmonic Valve Pulmonic valve not well visualized. Pericardium Trace to small pericardial effusion. No echocardiographic findings to suggest a hemodynamically significant pericardial effusion. Left pleural effusion. Great Vessels Normal size aortic root. CONCLUSIONS Mild left ventricular dilatation. Left ventricular wall thickness mildly increased. Severely reduced global left ventricular systolic function. Left ventricular ejection fraction is estimated at 25-30 %. Normal right ventricular size and function. Catheter/pacemaker wire in the right ventricular cavity. Moderate right atrial dilatation. Moderate left atrial dilatation. Moderate to severe mitral regurgitation. Abxxjooi-qy-kyiydn tricuspid regurgitation. Right ventricular systolic pressure estimated to be elevated at > 50 mmHg. Trace to small pericardial effusion. No echocardiographic findings to suggest a hemodynamically significant pericardial effusion. Left pleural effusion. Delio Villaseñor M.D. (Electronically Signed) Final Date: 16 March 2017 11:01 MEASUREMENTS (Male / Female) Normal Values 2D ECHO LV Diastolic Diameter PLAX 5.5 cm 4.2 - 5.9 / 3.9 - 5.3 cm LV Systolic Diameter PLAX 4.6 cm 2.1 - 4.0 cm LV Fractional Shortening PLAX 16.4 % 25 - 46 % LV Ejection Fraction 2D Teich 34.0 % IVS Diastolic Thickness 1.4 cm LVPW Diastolic Thickness 1.4 cm LV Relative Wall Thickness 0.5 RV Internal Dim ED PLAX 3.1 cm 1.9 - 3.8 cm LVOT Diameter 1.9 cm Aortic Root Diameter 2.4 cm LA Systolic Diameter LX 4.9 cm 3.0 - 4.0 / 2.7 - 3.8 cm LV Ejection Fraction MOD BP 39.0 % >= 55 % LV Diastolic Length 4C 7.1 cm 6.9 - 10.3 cm LV Diastolic Area 4C 26.6 cm LV Diastolic Volume MOD 4C 84.0 cm LV Ejection Fraction MOD 4C 31.0 % LV Stroke Volume MOD 4C 26.0 cm LV Systolic Length 4C 7.0 cm LV Systolic Area 4C 21.9 cm LV Systolic Volume MOD 4C 58.0 cm LV Ejection Fraction MOD 2C 41.0 % LV Diastolic Volume 4C AL 84.5 cm 85 - 139 / 69 - 109 cm LV Systolic Volume 4C AL 58.2 cm LV Ejection Fraction 4C AL 31.1 % LV Stroke Volume 4C AL 26.2 cm LV Ejection Fraction 2C AL 43.3 % LA Volume 71.0 cm 18 - 58 / 22 - 52 cm Ascending Aorta Diameter 3.0 cm DOPPLER AV Peak Velocity 114.0 cm/s AV Peak Gradient 5.2 mmHg AV Mean Velocity 81.7 cm/s AV Mean Gradient 3.0 mmHg AV Velocity Time Integral 23.0 cm LVOT Peak Velocity 71.4 cm/s LVOT Peak Gradient 2.0 mmHg LVOT Mean Velocity 51.7 cm/s LVOT Mean Gradient 1.0 mmHg LVOT Velocity Time Integral 14.1 cm LVOT Stroke Volume 40.0 cm AV Area Cont Eq vti 1.7 cm AV Area Cont Eq pk 1.8 cm MV Peak Velocity 198.0 cm/s MV Peak Gradient 15.7 mmHg MV Mean Velocity 58.2 cm/s MV Mean Gradient 2.0 mmHg Mitral E Point Velocity 146.0 cm/s MV PHT Velocity 204.0 cm/s MV Deceleration [place] 1279.0 cm/s MV Pressure Half Time 47.8 ms MV Area PHT 4.6 cm MV Deceleration Time 164.0 ms MR Peak Velocity 540.0 cm/s MR Peak Gradient 116.6 mmHg MR ERO PISA 0.4 cm MR Regurgitant Volume PISA 80.2 cm TR Peak Velocity 329.0 cm/s TR Peak Gradient 43.3 mmHg Right Atrial Pressure 10.0 mmHg Pulmonary Artery Systolic Pressu 53.3 mmHg Right Ventricular Systolic Press 53.3 mmHg PV Peak Velocity 93.0 cm/s PV Peak Gradient 3.5 mmHg PV Mean Velocity 59.4 cm/s PV Mean Gradient 2.0 mmHg PV Velocity Time Integral 15.6 cm LV E' Lateral Velocity 6.3 cm/s Mitral E to LV E' Lateral Ratio 23.2 LV E' Septal Velocity 6.3 cm/s Mitral E to LV E' Septal Ratio 23.2
--- NOTE | 2017-03-16 13:19 | PN- Att Addend ---
Attending Addendum Attending Brief Note I have personally seen and examined this patient and discussed the case in detail with the covering house staff. 1. Nonischemic cardiomyopathy with ejection fraction 25% to 30% with BiV-AICD 2. Moderate to severe mitral / tricuspid regurgitation 3. Acute on chronic systolic congestive heart failure 4. Persistent atrial fibrillation on Xarelto therapy. 5. History of nonobstructive coronary artery disease. 6. History of ventricular tachycardia. 7. History of carotid artery disease. 8. Diabetes mellitus 9. HTN Appears to be improving on IV Lasix. Echocardiogram appears grossly unchanged compared with prior study. I had her AICD interrogated and there has not been evidence of worsening OptiVol status but appears to biventricular paced only about 50% of the time. We have increased the Coreg to 50 milligrams p.o. b.i.d. to promote increased ventricular pacing and also to improved blood pressure control /afterload reduction. Will continue on daily ARB. Continue on IV Lasix for now with strict I&Os and daily weights. Continue daily Xarelto. Will plan to resume her daily statin therapy which she discontinued on her own. Edi Villaseñor MD [facility]
--- NOTE | 2017-03-16 13:19 | Admission Certification ---
Admission Certification Certification Statement - As attending physician, I certify that at the time of - admission, based on clinical presentation, severity of - symptoms, need for further diagnostic testing and - therapeutic interventions, and risk of adverse outcomes - without in-hospital treatment, in my clinical assessment, - this patient requires an acute hospital stay for a minimum - of two nights or longer. I have also considered psychsocial - factors such as support system, advanced age, financial - issues, cognitive issues, and failed out-patient treatments, - past re-admission history, safety of patient, and lack of - compliance as applicable. Specific rationale supporting this admission is: Acute decompensated systolic congestive heart failure with a known severe cardiomyopathy
[2017-03-16 15:52] VITALS: BP 110/58
[2017-03-16] MEDS ORDERED: CARVEDILOL25 M1 PO (22:34)
[2017-03-16] MEDS ORDERED: ATORVASTATIN CA20 M1 PO (22:34)
--- NOTE | 2017-03-16 22:40 | Patient Discharge Instructions ---
Discharge Instructions General Discharge Information You were seen/treated for: Congestive heart failure hyperglycemia Watch for these problems: chest pain, sob, leg swelling, weight gain high blood sugar level Special Instructions: please follow up with PCP Dr. Mathews in a week of discharge. Please follow up with Dr. Will Andrade within a week of discharge. Please check blood sugar 3 times prior to meal and keep a logbook and let PCP know about the reading and adjust diabetic medication accordingly to control blood sugar. Please follow up with Rosalia in office regarding diabetes education. Diet Recommended Diet: Diabetic, Heart Healthy Activity Activity Self Limited: Yes Additional ACTIVITY Info: As tolerated Acute Coronary Syndrome Inclusion Criteria At DC or during hospital stay patient has or had the following: ACS DIAGNOSIS No Discharge Core Measures Meds if any: Prescribed or Continued at Discharge Meds if any: NOT Prescribed or Continued at Discharge Congestive Heart Failure Inclusion Criteria At DC or during hospital stay patient has or had the following: CHF DIAGNOSIS Yes Discharge Core Measures Meds if any: Prescribed or Continued at Discharge KRISH/ARB for EF <40% Yes Meds if any: NOT Prescribed or Continued at Discharge Cerebrovascular accident Inclusion Criteria At DC or during hospital stay patient has or had the following: CVA/TIA Diagnosis No Discharge Core Measures Meds if any: Prescribed or Continued at Discharge Meds if any: NOT Prescribed or Continued at Discharge Venous thromboembolism Inclusion Criteria VTE Diagnosis No VTE Type NONE VTE Confirmed by (Test) NONE Discharge Core Measures - Per Current guidelines, there needs to be overlap - treatment for the first 5 days of Warfarin therapy. - If discharged on Warfarin prior to 5 days of - overlap therapy, the patient will need to be - assessed for post discharge needs including - *Post discharge parental anticoagulation - *Warfarin and/or parental anticoagulation education - *Follow up date to check INR post discharge At least 5 days overlap therapy as Inpatient No Meds if any: Prescribed or Continued at Discharge Note: Overlap Therapy is Warfarin and Anticoagulant Meds if any: NOT Prescribed or Continued at Discharge
[2017-03-17 00:24] VITALS: BP 132/60
[2017-03-17 07:30] VITALS: BP 138/70
--- NOTE | 2017-03-17 08:55 | PN- Housestaff ---
Subjective Follow-up For: Acute decompensated congestive heart failure Complaints: no complaints Tele-Events Since Last Visit: a fib, hr 69-83, some paced beats as well Subjective: patient followed up today, she offers no complaints, is still on additional oxygen via NC, is able to ambulate, no event overnight. Review of Systems Constitutional: Reports: no symptoms. Objective Last 24 Hrs of Vital Signs/I&O Vital Signs Date Time Temp Pulse Resp B/P B/P Pulse O2 O2 Flow FiO2 Mean Ox Delivery Rate 03/17 2112 70 138/70 03/17 1637 98.7 72 20 130/80 95 Nasal Cannula 03/17 0859 73 138/70 03/17 0859 73 138/70 03/17 0800 Nasal 2.0L Cannula 03/17 0730 98.7 73 16 138/70 94 Nasal 2.0L Cannula 03/17 0214 97 Nasal 2.0L Cannula 03/17 0024 98.5 65 20 132/60 97 Nasal 1.5L Cannula 03/17 0000 96 Nasal 1.5L Cannula Intake & Output 03/17 1600 03/17 0800 03/17 0000 Intake Total 480 120 770 Output Total 800 1400 400 Balance -320 -1280 370 Intake, IV 20 Intake, Oral 480 120 750 Number 2 1 0 Bowel Movements Output, Urine 800 1400 400 Patient 73.539 kg 74.899 kg Weight Weight Standing Scale Measurement Method Physical Exam General Appearance: Alert, Oriented X3, Cooperative, No Acute Distress, using oxygen via NC Other Physical Findings: Skin: No Rashes, No Breakdown HEENT: Atraumatic, PERRLA, EOMI Neck: Supple Cardiovascular: Normal S1, Normal S2, No Murmurs Lungs: Clear to Auscultation, Normal Air Movement Abdomen: Normal Bowel Sounds, Soft, No Tenderness Neurological: Normal Gait, Normal Speech and higher mental functions, grossly intact Extremities: No Clubbing, No Cyanosis, no edema appreciated by me Vascular: Normal Pulses, Pulses Symmetrical Current Medications: Current Medications Sig/Ajylin Start time Last Medication Dose Route Stop Time Status Admin Atorvastatin Calcium 20 MG 1700 03/16 1700 AC 03/17 PO 1711 Carvedilol 50 MG BID 03/16 2200 AC 03/17 PO 211 Diltiazem HCl 240 MG DAILY 03/16 1000 AC 03/17 PO 0859 Furosemide 40 MG DAILY 03/16 1000 AC 03/17 IV 0859 Guaifenesin 10 ML Q6P PRN 03/17 0245 AC 03/17 PO 0900 Insulin Aspart 0 TIDAC/HS 03/17 2129 AC 03/17 SC 2151 Insulin Aspart 0 TIDAC 03/15 1700 DC 03/17 SC 1223 Losartan Potassium 100 MG DAILY 03/16 1000 AC 03/17 PO 0859 Magnesium Oxide 800 MG ONE ONE 03/17 1945 DC 03/17 PO 03/17 Rivaroxaban 20 MG AT BEDTIME 03/15 2200 AC 03/17 PO 211 Sodium Chloride 2 SPRAY Q4P PRN 03/17 0830 AC 03/17 SUSANA 0900 Last 24 Hrs of Lab/Wagner Results Last 24 Hrs of Labs/Mics: Laboratory Tests 03/17/17 0640: Anion Gap 11, Estimated GFR > 60, BUN/Creatinine Ratio 21.4, Magnesium 1.7, Triglycerides 80, Cholesterol 165, LDL Cholesterol, Calc 108, HDL Cholesterol 41 , Cholesterol/HDL Ratio 4 Assessment/Plan Assessment: Patient is a 76 yo Female with PMH of dilated nonischaemic cardiomyopathy (EF 20 -25% - 02/11/14), AICD in place, mod-severe MR/TR, HFrEF, AF, DM, HTN, who presented to ER with Dyspnea and chest heaviness is currently being managed in the telemetry floor for the following issues:. #Acute decompensated congestive heart failure, in setting of extensive cardiac history patient is doing much better than the admission day, but is still on additional oxygen via nasal canula. She is not in resp distress and is able to ambulate with it. She has been receiveing IV Lasix 40 mg daily, and doesn't appear congestive currently. -Continue to diurese -Continue increased dose of Carvedilol 50mg BID -Continue statin -Continue sodium restricted diet, strict I/O and daily weight monitoring -Upon discharge, will require CHF clinic collow-up #H/o nonischaemic cardiomyopathy (last EF 20-25%) with AICD in place She was on carvedilol 37.5mg BID, now on 50mg BID. Valsartan 320mg daily at home * Pacermaker interrogated - infrequently in V.tach and not often paced. * She is not completely dependent on her pacemaker for now, so plan to decrease her heart rate so that she can be 100% dependent on her pacemaker - Increasing carvedilol dose to 50mg BID (decreases heart rate and afterload). #Persistent Atrial Fibrillation * Continue Xarelto for anticoagulation and Cardizem 240mg ER for rate control ( is under control) #Uncontrolled diabetes mellitus Continue insulin sliding scale, accuchecks, and diabetic diet with sodium restriction Her FBS today was 303 DVT prophylaxis: On xarelto Diet: Diabetic diet with 2 gram sodium restriction Code Status: Full Code Problem List: 1. Systolic CHF, acute on chronic 2. Atrial fibrillation 3. Diabetes Pain Ratin Pain Location: - Pain Goal: Pain 4 or less Pain Plan: prn Tomorrow's Labs & Rationales: BEP, Mg
--- NOTE | 2017-03-17 11:31 | NUR ---
PT IS A+OX4. DENIES PAIN. NO C/O SOB. LS DIMINISHED AT BASES. O2 SAT 95% ON 2L VIA NC. TITRATED DOWN TO 1L. O2 SAT NOW 93%. INCENTIVE SPIROMETER GIVEN. EDUCATED AND RETURN DEMONSTRATION DONE. ENCOURAGED USE EVERY HOUR WHICH SHE HAS BEEN DOING INDEPENDENTLY. DRY COUGH NOTED. ROBITUSSIN GIVEN. SCANT AMOUNT OF BLOOD FROM NOSTRIL LIKELY DUE FROM IRRITATION OF OXYGEN. RT INITIATED HUMIDIFICATION OF O2 AND ORDER FOR SALINE NASAL SPRAY OBTAINED. SEEN TODAY BY DR.ALAN LEE FROM CARDIOLOGY. MAGNESIUM 1.7. DR.VIVEK HE WAS UPDATED. IV LASIX GIVEN. DIURESING WELL. SEE I+O'S. SAFETY MAINTAINED.
--- NOTE | 2017-03-17 12:22 | PN- Cardiology ---
Subjective Subjective: The patient is awake, alert Feels improved from a respiratory standpoint; however, not at baseline The events of the last 24 hours as well as telemetry were reviewed. Review of Systems: The review of systems is negative for chest pains, palpitations nor lightheadedness. The remainder of the 14 point review of systems is noncontributory with the exception of above. Objective Vital Signs and I&Os Vital Signs Date Time Temp Pulse Resp B/P B/P Pulse O2 O2 Flow FiO2 Mean Ox Delivery Rate 03/17 0859 73 138/70 03/17 0859 73 138/70 03/17 0800 Nasal 2.0L Cannula 03/17 0730 98.7 73 16 138/70 94 Nasal 2.0L Cannula 03/17 0214 97 Nasal 2.0L Cannula 03/17 0024 98.5 65 20 132/60 97 Nasal 1.5L Cannula 03/17 0000 96 Nasal 1.5L Cannula 03/16 2131 76 140/70 03/16 1600 97 Nasal 1.5L Cannula 03/16 1552 98.6 69 20 110/58 97 Nasal 2.0L Cannula Intake & Output 03/17 1600 03/17 0800 03/17 0000 03/16 1600 03/16 0800 03/16 0000 Intake Total 120 770 600 240 270 Output Total 800 1400 400 600 700 350 Balance -800 -1280 370 0 -460 -80 Intake, IV 20 100 15 20 Intake, Oral 120 750 500 225 250 Number 1 1 0 1 0 Bowel Movements Output, Urine 800 1400 400 600 700 350 Patient 162 lb 165 lb 162 lb 170 lb Weight Weight Standing Scale Measurement Method Physical Exam: General: Nontoxic, no apparent distress. HEENT: Sclera and conjunctiva within normal limits, without xanthelasmas. Neck: Carotids 2+ without bruits. Respiratory: Scattered rhonchi, air movement is good, without accessory respiratory muscle use. Heart: Regular rate and rhythm, 2/6 systolic ejection murmur at left sternal border, without JVD. Abdomen: Soft, nontender, no masses, normoactive bowel sounds. Extremities: Without clubbing, cyanosis, without edema. Neuro: Nonfocal exam, strength, 5 out of 5 Skin: Within normal limits without lesions. Psych: Mood and affect: Normal Current Medications: Current Medications Sig/Jaylin Start time Last Medication Dose Route Stop Time Status Admin Atorvastatin Calcium 20 MG 1700 04/21 1700 AC 03/16 PO 1714 Carvedilol 50 MG BID 03/16 2200 AC 03/17 PO 0859 Diltiazem HCl 240 MG DAILY 03/16 1000 AC 03/17 PO 0859 Furosemide 40 MG DAILY 03/16 1000 AC 03/17 IV 0859 Guaifenesin 10 ML Q6P PRN 03/17 0245 AC 03/17 PO 0900 Insulin Aspart 4 UNITS ONCE ONE 03/16 2130 DC 03/16 SC 03/16 Insulin Aspart 0 TIDAC 03/15 1700 AC 03/17 SC 0858 Losartan Potassium 100 MG DAILY 03/16 1000 AC 03/17 PO 0859 Rivaroxaban 20 MG AT BEDTIME 03/15 2200 AC 03/16 PO 2128 Sodium Chloride 2 SPRAY Q4P PRN 03/17 0830 AC 03/17 SUSANA 0900 Results Last 48 Hrs of Labs/Mics: Laboratory Tests 03/17/17 0640: Anion Gap 11, Estimated GFR > 60, BUN/Creatinine Ratio 21.4, Magnesium 1.7, Triglycerides 80, Cholesterol 165, LDL Cholesterol, Calc 108, HDL Cholesterol 41 , Cholesterol/HDL Ratio 4 03/16/17 0455: Anion Gap 12, Estimated GFR > 60, BUN/Creatinine Ratio 17.1, Glucose 163 H, Magnesium 1.4 L, Triglycerides 132, Cholesterol 179, LDL Cholesterol, Calc 115, HDL Cholesterol 38 L, Cholesterol/HDL Ratio 5 H 03/15/17 2243: Troponin I < 0.01 03/15/17 1707: Troponin I < 0.01 Assessment/Plan Assessment/Plan 1. Nonischemic cardiomyopathy with ejection fraction 25% to 30% with BiV-AICD 2. Moderate to severe mitral / tricuspid regurgitation 3. Acute on chronic systolic congestive heart failure 4. Persistent atrial fibrillation on Xarelto therapy. 5. History of nonobstructive coronary artery disease. 6. History of ventricular tachycardia. 7. History of carotid artery disease. 8. Diabetes mellitus 9. HTN The patient has improved dramatically following diuresis and we will continue the same, targeting a net output of approximately 1 L further per day. Following discharge, the patient will require close monitoring in an outpatient setting within a CHF clinic. We will continue the current medication regimen. Continue telemetry? Yes
[2017-03-17 16:37] VITALS: BP 130/80
--- NOTE | 2017-03-17 21:19 | NUR ---
BEDTIME FINGERSTICK 267. NO BEDTIME COVERAGE ORDERED. ANODE REBUILDER REGINA POWER NOTIFIED. WILL CONTINUE TO MONITOR.
[2017-03-18 00:08] VITALS: BP 114/70
--- NOTE | 2017-03-18 07:59 | PN- Housestaff ---
Subjective Follow-up For: Acute decompensated heart failure Tele-Events Since Last Visit: Atrial Fibrillation -on pacer 65-84bpm Subjective: I saw the patient today morning She is really frustated, really not interested in talking to me. Reports dont want to answer any questions. Review of Systems Constitutional: Reports: see HPI. Comments: ROS cannot be appreciated Objective Last 24 Hrs of Vital Signs/I&O Vital Signs Date Time Temp Pulse Resp B/P B/P Pulse O2 O2 Flow FiO2 Mean Ox Delivery Rate 03/18 0008 97.7 67 20 114/70 93 Nasal 2.0L Cannula 03/18 0000 Nasal 1.0L Cannula 03/17 2112 70 138/70 03/17 1637 98.7 72 20 130/80 95 Nasal Cannula 03/17 0859 73 138/70 03/17 0859 73 138/70 03/17 0800 Nasal 2.0L Cannula Intake & Output 03/18 0800 03/18 0000 03/17 1600 Intake Total 700 480 Output Total 1000 800 800 Balance -300 -800 -320 Intake, Oral 700 480 Number 2 Bowel Movements Output, Urine 1000 800 800 Patient 74.503 kg 73.539 kg Weight Weight Standing Scale Measurement Method Physical Exam General Appearance: Alert, Oriented X3, not cooperative Skin: No Rashes, No Breakdown HEENT: Atraumatic Other Physical Findings: Didnt examine as not want to be examined Assessment/Plan Assessment: Patient is a 76 yo Female with PMH of dilated nonischaemic cardiomyopathy (EF 20 -25% - 02/11/14), AICD in place, mod-severe MR/TR, HFrEF, AF, DM, HTN, who presented to ER with Dyspnea and chest heaviness is currently being managed in the telemetry floor for the following issues:. #Acute decompensated congestive heart failure, in setting of extensive cardiac history patient is doing much better than the admission day, but is still on additional oxygen via nasal canula. She is not in resp distress and is able to ambulate with it. She has been receiveing IV Lasix 40 mg daily, and doesn't appear congestive currently. * continue Carvedilol 50mg BID, statin 40mg * Continue sodium restricted diet, strict I/O and daily weight monitoring * Upon discharge, will require CHF clinic collow-up #H/o nonischaemic cardiomyopathy (last EF 20-25%) with AICD in place She was on carvedilol 37.5mg BID, now on 50mg BID. Valsartan 320mg daily at home * Pacermaker interrogated - infrequently in V.tach and not often paced. * She is not completely dependent on her pacemaker for now, so plan to decrease her heart rate so that she can be 100% dependent on her pacemaker - Increasing carvedilol dose to 50mg BID (decreases heart rate and afterload). #Persistent Atrial Fibrillation * Continue Xarelto for anticoagulation and Cardizem 240mg ER for rate control ( is under control) #Uncontrolled diabetes mellitus Continue insulin sliding scale, accuchecks, and diabetic diet with sodium restriction Her FBS today was 303 DVT prophylaxis: On xarelto Diet: Diabetic diet with 2 gram sodium restriction Code Status: Full Code Problem List: 1. CHF (congestive heart failure) 2. Arthritis of knee, right 3. Atrial fibrillation 4. Diabetes Pain Ratin Pain Location: n/a Pain Goal: Pain 4 or less Pain Plan: tylenol prn Tomorrow's Labs & Rationales: bep to monitor electrolytes and renal function
[2017-03-18 08:07] VITALS: BP 150/78
--- NOTE | 2017-03-18 14:33 | PN- Cardiology ---
Subjective Subjective: The patient is awake, alert The events of the last 24 hours as well as telemetry were reviewed. Review of Systems: The review of systems is negative for chest pains, palpitations nor lightheadedness. The remainder of the 14 point review of systems is noncontributory with the exception of above. Objective Vital Signs and I&Os Vital Signs Date Time Temp Pulse Resp B/P B/P Pulse O2 O2 Flow FiO2 Mean Ox Delivery Rate 03/18 1001 150/78 03/18 1001 150/78 03/18 0807 66 14 150/78 96 Nasal 1.0L Cannula 03/18 0800 94 Nasal 1.0L Cannula 03/18 0008 97.7 67 20 114/70 93 Nasal 2.0L Cannula 03/18 0000 Nasal 1.0L Cannula 03/17 2112 70 138/70 03/17 1637 98.7 72 20 130/80 95 Nasal Cannula Intake & Output 03/18 1600 03/18 0800 03/18 0000 03/17 1600 03/17 0800 03/17 0000 Intake Total 600 700 480 120 770 Output Total 1000 1000 191 513 3533 400 Balance -400 -300 -800 -320 -1280 370 Intake, IV 20 Intake, Oral 600 700 480 120 750 Number 2 1 0 Bowel Movements Output, Urine 1000 1000 427 558 1362 400 Patient 164 lb 162 lb 165 lb Weight Weight Standing Scale Standing Scale Measurement Method Physical Exam: General: Nontoxic, no apparent distress. HEENT: Sclera and conjunctiva within normal limits, without xanthelasmas. Neck: Carotids 2+ without bruits. Respiratory: Scattered rhonchi, air movement is good, without accessory respiratory muscle use. Heart: Regular rate and rhythm, without murmurs, without JVD. Abdomen: Soft, nontender, no masses, normoactive bowel sounds. Extremities: Without clubbing, cyanosis, without edema. Neuro: Nonfocal exam, strength, 5 out of 5 Skin: Within normal limits without lesions. Psych: Mood and affect: Normal Current Medications: Current Medications Sig/Jaylin Start time Last Medication Dose Route Stop Time Status Admin Atorvastatin Calcium 20 MG 1700 03/16 1700 AC 03/17 PO 1711 Carvedilol 50 MG BID 03/16 2200 AC 03/18 PO 1001 Diltiazem HCl 240 MG DAILY 03/16 1000 AC 03/18 PO 1001 Furosemide 40 MG DAILY 03/16 1000 AC 03/18 IV 1001 Guaifenesin 10 ML .STK-MED ONE 03/18 0136 DC PO 03/18 0137 Guaifenesin 10 ML Q6P PRN 03/17 0245 AC 03/18 PO 0135 Insulin Aspart 0 TIDAC/HS 03/17 2129 AC 03/18 SC 1229 Insulin Aspart 0 TIDAC 03/15 1700 DC 03/17 SC 1223 Losartan Potassium 100 MG DAILY 03/16 1000 AC 03/18 PO 1001 Magnesium Oxide 400 MG ONE ONE 03/18 1115 DC 03/18 PO 03/18 1116 1230 Magnesium Oxide 800 MG ONE ONE 03/17 1945 DC 03/17 PO 03/17 194 211 Rivaroxaban 20 MG AT BEDTIME 03/15 2200 AC 03/17 PO 211 Sodium Chloride 2 SPRAY Q4P PRN 03/17 0830 AC 03/17 SUSANA 0900 Results Last 48 Hrs of Labs/Mics: Laboratory Tests 03/18/17 0617: Anion Gap 11, Estimated GFR > 60, BUN/Creatinine Ratio 20.0, Magnesium 1.7 03/17/17 0640: Anion Gap 11, Estimated GFR > 60, BUN/Creatinine Ratio 21.4, Magnesium 1.7, Triglycerides 80, Cholesterol 165, LDL Cholesterol, Calc 108, HDL Cholesterol 41 , Cholesterol/HDL Ratio 4 Assessment/Plan Assessment/Plan 1. Nonischemic cardiomyopathy with ejection fraction 25% to 30% with BiV-AICD 2. Moderate to severe mitral / tricuspid regurgitation 3. Acute on chronic systolic congestive heart failure 4. Persistent atrial fibrillation on Xarelto therapy. 5. History of nonobstructive coronary artery disease. 6. History of ventricular tachycardia. 7. History of carotid artery disease. 8. Diabetes mellitus 9. HTN The patient has improved dramatically following diuresis (approximately 2 L overnight), and we will continue the same, targeting a net output of approximately 1 L further per day. Following discharge, the patient will require close monitoring in an outpatient setting within a CHF clinic. We will continue the current medication regimen. Continue telemetry? Yes
[2017-03-18 15:50] VITALS: BP 120/70
--- NOTE | 2017-03-18 23:58 | NUR ---
ALERT AND ORIENTED X 3. VITAL SIGNS STABLE. DENIES CHEST PAIN. + PULSES ON ROOM AIR. NO DISCOMFORT NOTED. STEADY GAIT. SKIN C/D/I PATIENT RESTING AT THIS TIME. WILL CONTINUE TO MONITOR
[2017-03-19 00:15] VITALS: BP 140/70
--- NOTE | 2017-03-19 07:00 | PN- Housestaff ---
SAGRARIO DAVIES,ALEC 03/19/17 0659: Subjective Follow-up For: Acute decompensation of heart failure Tele-Events Since Last Visit: single pacing 62-108bpm Subjective: I saw and examined the patient today morning she is on room air, denies any shortness of breath, chest pain, dizziness with walking. Review of Systems Constitutional: Reports: no symptoms, see HPI. Objective Last 24 Hrs of Vital Signs/I&O Vital Signs Date Time Temp Pulse Resp B/P B/P Pulse O2 O2 Flow FiO2 Mean Ox Delivery Rate 03/19 0015 99.0 65 20 140/70 96 03/19 0000 Room Air 03/18 2209 75 160/78 03/18 1600 Nasal 1.0L Cannula 03/18 1550 98.4 70 20 120/70 95 03/18 1001 150/78 03/18 1001 150/78 03/18 0807 66 14 150/78 96 Nasal 1.0L Cannula 03/18 0800 94 Nasal 1.0L Cannula Intake & Output 03/19 0800 03/19 0000 03/18 1600 Intake Total 500 600 Output Total 978 385 1293 Balance -850 100 -400 Intake, Oral 500 600 Output, Urine 822 019 6432 Patient 72.291 kg Weight Weight Chair scale Measurement Method Physical Exam General Appearance: Alert, Oriented X3, Cooperative Skin: No Rashes, No Breakdown HEENT: Atraumatic, PERRLA, EOMI Neck: Supple Cardiovascular: Normal S1, Normal S2 Lungs: Clear to Auscultation, Normal Air Movement Abdomen: Normal Bowel Sounds, Soft, No Tenderness Neurological: Normal Gait, Normal Speech, Strength at 5/5 X4 Ext Extremities: No Clubbing, No Cyanosis, No Edema Current Medications: Current Medications Sig/Jaylin Start time Last Medication Dose Route Stop Time Status Admin Atorvastatin Calcium 20 MG 1700 03/16 1700 AC 03/18 PO 1718 Carvedilol 50 MG BID 03/16 2200 AC 03/18 PO 220 Diltiazem HCl 240 MG DAILY 03/16 1000 AC 03/18 PO 1001 Furosemide 40 MG DAILY 03/16 1000 AC 03/18 IV 1001 Guaifenesin 10 ML Q6P PRN 03/17 0245 AC 03/19 PO 0216 Insulin Aspart 0 TIDAC/HS 03/17 2129 AC 03/18 SC 220 Losartan Potassium 100 MG DAILY 03/16 1000 AC 03/18 PO 1001 Magnesium Oxide 400 MG ONE ONE 03/18 1115 DC 03/18 PO 03/18 1116 1230 Rivaroxaban 20 MG AT BEDTIME 03/15 2200 AC 03/18 PO 2209 Sodium Chloride 2 SPRAY Q4P PRN 03/17 0830 AC 03/17 SUSANA 0900 Last 24 Hrs of Lab/Wagner Results Last 24 Hrs of Labs/Mics: Laboratory Tests 03/19/17 0600: Anion Gap 10, Estimated GFR > 60, BUN/Creatinine Ratio 21.4, Magnesium 1.6 Lines/Diet/Fluids Lines: peripheral lines Assessment/Plan Assessment: Patient is a 76 yo Female with PMH of dilated nonischaemic cardiomyopathy (EF 20 -25% - 02/11/14), AICD in place, mod-severe MR/TR, HFrEF, AF, DM, HTN, who presented to ER with Dyspnea and chest heaviness is currently being managed in the telemetry floor for the following issues:. Acute decompensated congestive heart failure, in setting of extensive cardiac history patient is doing much better than the admission day. She is not in resp distress and is able to ambulate with it. * Asymtomatic - converted to oral lasix 40mg daily. * Continue coreg 50mg BID, as blood pressure is on the higher side added spirolonolactone 12.5mg daily to her regimen today to reduce afterload. H/o nonischaemic cardiomyopathy (last EF 20-25%) with AICD in place She was on carvedilol 37.5mg BID, now on 50mg BID. Valsartan 320mg daily at home * Pacermaker interrogated - infrequently in V.tach and not often paced. * After reducing her heart rate with Coreg she was completely dependent on pacemaker now. Persistent Atrial Fibrillation * Continue Xarelto for anticoagulation and Cardizem 240mg ER for rate control ( is under control) Uncontrolled diabetes mellitus * As her HbA1C is 9.8 and sugars are in 250-300 (at admission 400) -- Consulted endocrinology * addressed the issue - as patient is having low EF with a high possibility of low perfusion to kidneys - janumet is discontinued. Started on januvia 100mg and jardiance 10mg daily. * At this point we will continue her glimiperide 4mg daily * she was provided with Glucometer, lancets and strips. She went to office today after discharge where she was educated about it. DVT prophylaxis: On xarelto Diet: Diabetic diet with 2 gram sodium restriction Code Status: Full Code Problem List: 1. Atrial fibrillation 2. Diabetes 3. Hypercholesteremia 4. CHF (congestive heart failure) 5. Systolic CHF, acute on chronic Pain Ratin Pain Location: n/a Pain Goal: Pain 4 or less Pain Plan: tylenol prn Tomorrow's Labs & Rationales: none [facility] 1612: Attending MD Review Statement Attending Statement Attending MD Statement: examined this patient, discuss w/resident/PA/DIGITAL DESIGN ENGINEER, reviewed EMR data (avail), discussed with case mgmt, reviewed images, amended to note (see my note)
--- NOTE | 2017-03-19 08:19 | NUR ---
Consult received for diet education r/t DM, 2gNa diet. Refer to nutrition assessment 03/17/17 PRN, pt received diet education on 03/17/17. If pt needs further diet education, consider MD referral for outpatient nutrition counseling. Thank you
[2017-03-19 08:46] VITALS: BP 155/80
[2017-03-19] MEDS ORDERED: LASIX40 M1 PO (10:58)
[2017-03-19] MEDS ORDERED: ALDACTONE25 MG PO (11:00)
[2017-03-19] MEDS ORDERED: JARDIANCE10 M1 PO (13:08)
[2017-03-19] MEDS ORDERED: JANUVIA100 M1 PO (13:08)
--- NOTE | 2017-03-19 15:40 | Cons- Endocrinology ---
General Information and HPI Consulting Request Date of Consult: 03/19/17 Requested By: medical team Reason for Consult: management of DM type 2 Source of Information: patient, old records Exam Limitations: no limitations History of Present Illness: 76 YO F with PMH significant for dilated nonischaemic cardiomyopathy (EF 25-30%) , [employer] biventricular AICD (jul 2009), CHF, Persistent AF (on xarelto), CAD , Diabetes mellitus, was admitted for CHF exacerbation on 03/15/2017. From cadia standpoint, she can be discharged home. But her glucose levels were in the 200s and 300s. I was asked to see her before patient will be disharged. At home, she was on Janumet mg twice a day and Glimepiride 4 mg daily. She doesn't check FSGs at home. Her HbA1c in hospital was 9.8%. In hospital, she was on Novolog coverage and her FSGs were 215 and 261. Allergies/Medications Allergies: Coded Allergies: MDX - Broccoli (BROCCOLI) (UNKNOWN 02/11/14) MDX - Cabbage (CABBAGE) (UNKNOWN 02/11/14) MDX - Avon (CUCUMBER) (UNKNOWN 02/11/14) Home Med List: Atorvastatin Calcium 20 MG TABLET 20 MG PO 1700 HLD Carvedilol 25 MG TABLET 2 TAB PO BID Cardiomyopathy Diltiazem HCl (Cartia Xt) 240 MG CAP.ER.24H 1 TAB PO DAILY afib (Reported) Empagliflozin (Jardiance) 10 MG TABLET 1 TAB PO DAILY blood sugars Estradiol (Estrace) 0.01 % CREAM.APPL 1 GM VG QW HORMONE (Reported) Furosemide (Lasix) 40 MG TABLET 40 MG PO DAILY cardiomyopathy/heart failure Glimepiride (Amaryl) 4 MG TABLET 1 TAB PO DAILY DM (Reported) Rivaroxaban (Xarelto) 20 MG TABLET 1 TAB PO AT BEDTIME afib (Reported) with food Sitagliptin Phosphate (Januvia) 100 MG TABLET 1 TAB PO DAILY blood sugars Spironolactone (Aldactone) 25 MG TABLET 12.5 MG PO DAILY systolic heart failure/HTN Valsartan (Diovan) 320 MG TABLET 1 TAB PO DAILY htn (Reported) Review of Systems Review of Systems Constitutional: Reports: see HPI. Cardiovascular: Reports: see HPI. Respiratory: Reports: see HPI. GI: Denies: abdominal pain. Genitourinary: Denies: dysuria. Hematologic/Endocrine: Denies: polyuria, polydipsia. Past History Travel History Traveled to [place] past 21 day No Medical History Blood Transfusion Hx: No Neurological: NONE EENT: NONE Cardiovascular: AFIB, CAD, CHF, hypertension, hyperlipidemia Respiratory: NONE Gastrointestinal: NONE Hepatic: NONE Renal: NONE Musculoskeletal: NONE Psychiatric: NONE Endocrine: diabetes Blood Disorders: DVT Cancer(s): NONE C APPLICATION DEVELOPER/Reproductive: NONE Surgical History Surgical History: non-contributory Family History Relations & Conditions If Any: MOTHER ([place] at age of 55). Relation not specified for: FH: myocardial infarction Psychosocial History Where Do You Live? Home Who Do You Live With? spouse Services at Home: None Smoking Status: Never Smoked ETOH Use: every day a glass of wine Illicit Drug Use: denies illicit drug use Functional Ability ADLs Independent: dressing, eating, toileting, bathing. Ambulation: independent IADLs Independent: shopping, housework, finances, food prep, telephone, transportation , medication admin. Exam & Diagnostic Data Last 24 Hrs of Vital Signs/I&O Vital Signs Date Time Temp Pulse Resp B/P B/P Pulse O2 O2 Flow FiO2 Mean Ox Delivery Rate 03/19 0846 98.2 83 16 155/80 93 Trach Mask 03/19 0817 132/80 03/19 0817 132/80 03/19 0015 99.0 65 20 140/70 96 03/19 0000 Room Air 03/18 2209 75 160/78 03/18 1600 Nasal 1.0L Cannula 03/18 1550 98.4 70 20 120/70 95 Intake & Output 03/19 1600 03/19 0800 03/19 0000 Intake Total 500 Output Total 850 400 Balance -850 100 Intake, Oral 500 Output, Urine 850 400 Patient 159 lb Weight Weight Chair scale Measurement Method Physical Exam General Appearance: well developed/nourished, no apparent distress Respiratory: decreased breath sounds Cardiovascular: irregularly irregular Gastrointestinal: normal bowel sounds Extremities: no edema Labs/Wagner Results: Laboratory Tests 03/19 0600 Chemistry Sodium (137 - 145 mmol/L) 139 Potassium (3.5 - 5.1 mmol/L) 4.0 Chloride (98 - 107 mmol/L) 99 Carbon Dioxide (22 - 30 mmol/L) 29 Anion Gap (5 - 16) 10 BUN (7 - 17 mg/dL) 15 Creatinine (0.5 - 1.0 mg/dL) 0.7 Estimated GFR (>60 ml/min) > 60 BUN/Creatinine Ratio (7 - 25 %) 21.4 Magnesium (1.6 - 2.3 mg/dL) 1.6 Assessment/Plan Assessment/Plan As per cardiology, patient is going home today. The discharge plan for DM: 1. stop Janumet as her EF is only 25-30%; 2. start januvia 100 mg daily; 3. start Jardiance 10 mg daily; the possible side effects related to Jardiance have been discussed with her; 4. continue Glimepiride 4 mg daily; 5. monitor FSGs x 2 times a day; glucometer teaching prior to discharge; 6. patient can come to office for picking up sample of Jardiance 10 mg and Januvia 100 mg today. 7. f/u with Rosalia in office for DM education within one month; 8. f/u with me in office in 06/2017 or sooner as it is indicated. The above plan has been discussed darrell team. Consult Acknowledgment - Thank you for your consult request.
--- NOTE | 2017-03-19 16:18 | PN- Att Addend ---
Attending Addendum Attending Brief Note I have personally seen and examined this patient and discussed the case in detail with the covering house staff. 1. Nonischemic cardiomyopathy with ejection fraction 25% to 30% with BiV-AICD 2. Moderate to severe mitral / tricuspid regurgitation 3. Acute on chronic systolic congestive heart failure 4. Persistent atrial fibrillation on Xarelto therapy. 5. History of nonobstructive coronary artery disease. 6. History of ventricular tachycardia. 7. History of carotid artery disease. 8. Diabetes mellitus 9. HTN The patient is now euvolemic on exam and we have transitioned her back to oral Lasix. Endocrinology consult was obtained and additional diabetic optimization will be continued on outpatient Endocrinology follow-up. The patient is tolerating increased carvedilol well and now appears to be Bi V pacing consistently which was our goal. We are also adding low-dose Aldactone for her nonischemic cardiomyopathy. She is currently asymptomatic and ambulating without difficulty. She is currently stable for discharge and I did discuss with her the importance of more regular medical follow-up after discharge which she agrees to. She should follow up with her PCP and her primary dog breeder within 1 week of discharge and has also been set up for Endocrinology follow-up after discharge. Edi Villaseñor MD [facility]
--- NOTE | 2017-03-19 22:36 | Discharge Summary ---
Visit Information Visit Dates Admission Date: 03/15/17 Discharge Date: 03/19/17 Hospital Course Course Attending Physician: WAYNE DAVIES,ZI Rincon Primary Care Physician: LELIA MATHEWS MD Consulting Request: Consulting Specialty: Endocrinology Consulting Physician: Reason for Consult: Uncontrolled diabetes Hospital Course: Patient is a 76 YO Diabetic Female with PMH significant for Dilated nonischaemic cardiomyopathy (EF 20-25% - 02/11/14), AICD, AF presented to ER with Dyspnea and chest heaviness. ER Course VS Afebrile, DC 104, RR 22, BP 170/84mmHg, on 4L oxygen initially (later came down to 2L with diuresis) Significant labs include Blood glucose 405, ProBNP 2980, K of 3.9. CXR shows Central vascular prominence without overt edema. Last ECHO - 02/11/14 LVEF 20-25% with anterior wall, anteroseptum, and inferoapex are akinetic, remaining gonzales moderately hypokinetic. RVSP >50mmHg. Plan Admitted to telemetry floor Acute decompensated congestive heart failure Precipitant could be acute illness (cough & congestion a day prior to admission), ruled out ischaemic and thyroid related causes. Diuresed with IV lasix 40mg -- responded well with weight reduction, decreased oxygen demand (4L to room air). ECHO shows LVEF 25-30%, with severly reduced global left ventricular systolic function, severe TR, RVSP >50mmHg. As afterload is high increased Coreg to 50mg BID, started on aldactone 12.5mg. she need to follow up in 7-10days in the clinic. Stopped taking cholesterol medication on her own, so started on atrovastatin 20mg daily. H/o nonischaemic cardiomyopathy with AICD in place Pacermaker/AICD interrogated - infrequently in V.tach and not often paced. She was 50% dependent on her pacemaker, after increasing carvedilol dose to 50mg BID became 100% dependent. At home on valsartan 320mg, received losartan 100mg in hospital. continued home medication at discharge. Persistent Atrial Fibrillation She was on xarelto for anticoagulation and Cardizem 240mg ER for rate control, continued during her hospital course. Uncontrolled diabetes mellitus (type 2) Her sugars in ER are in 400's, further HbA1C was 9.8. Despite on Novolog sliding scale (high dose) - her sugars are in 200's to 300's. At discharge time, endocrine is consulted. Compliance is the major issue with this patient. she needs regular follow up with Endocrine service and need to check her sugars. She was on janumet and glimiperide 4mg at home. As her EF is less 25-30% and there is risk of hypoperfusion to kidneys, discontinued her janumet, started on januvia 100mg & jardiance 10mg daily. She was also prescribed Glucometer, Lancets and strips to measure at home. A home health service is provided to measure her sugars twice. Unfortunately patient is not educated about glucometer in the hospital today. she went to clinic today after discharge for some free samples. Allergies: Coded Allergies: MDX - Broccoli (BROCCOLI) (UNKNOWN 02/11/14) MDX - Cabbage (CABBAGE) (UNKNOWN 02/11/14) MDX - [place] (CUCUMBER) (UNKNOWN 02/11/14) Disposition Summary Disposition Principal Diagnosis: acute decompensated heart failure Additional Diagnosis: Persistent Atrial Fibrillation Uncontrolled diabetes mellitus Noncompliance Discharge Disposition: home health services Discharge Instructions General Discharge Information Code Status: Full Code Patient's Diet: Heart healthy diet Patient's Activity: full activity as tolerated Follow-Up Instructions/Appts: please follow up with PCP Dr. Mathews in a week of discharge. Please follow up with Dr. Zi Andrade within a week of discharge. Please check blood sugar 3 times prior to meal and keep a logbook and let PCP know about the reading and adjust diabetic medication accordingly to control blood sugar. Please follow up with oRsalia in office regarding diabetes education. Medications at Discharge Discharge Medications: Stop taking the following medications: Sitagliptin Phos/Metformin HCl (Janumet 50-1,000 MG Tablet) 50 MG-1,000 MG TABLET ORAL TWICE DAILY Qty = 180 Carvedilol (Carvedilol) 25 MG TABLET ORAL TWICE DAILY Qty = 180 Furosemide (Lasix) 20 MG TABLET ORAL TWICE DAILY Continue taking these medications: Estradiol (Estrace) 0.01 % CREAM.APPL 1 Gram VAGINAL Once a Week Qty = 42 Comments: NOT GIVEN Rivaroxaban (Xarelto) 20 MG TABLET 1 Tablet ORAL AT BEDTIME Qty = 90 Instructions: with food Comments: GIVEN 03/18/17 @ 10:00 PM Valsartan (Diovan) 320 MG TABLET 1 Tablet ORAL DAILY Comments: GIVEN [facility] 03/19/17 @ 8:20 AM Diltiazem HCl (Cartia Xt) 240 MG CAP.ER.24H 1 Tablet ORAL DAILY Comments: GIVEN 03/19/17 @ 8:20 AM Glimepiride (Amaryl) 4 MG TABLET 1 Tablet ORAL DAILY Comments: NOT GIVEN Start taking the following new medications: Atorvastatin Calcium (Atorvastatin Calcium) 20 MG TABLET 20 Milligram ORAL 5 PM Qty = 30 No Refills Comments: GIVEN 03/18/17 @ 5:20 PM Carvedilol (Carvedilol) 25 MG TABLET 2 Tablet ORAL TWICE DAILY Qty = 120 No Refills Comments: GIVEN 03/19/17 @ 8:20 AM Furosemide (Lasix) 40 MG TABLET 40 Milligram ORAL DAILY Qty = 30 No Refills Comments: GIVEN 03/19/17 @ 8:20 AM Spironolactone (Aldactone) 25 MG TABLET 12.5 Milligram ORAL DAILY Qty = 30 No Refills Comments: GIVEN 03/19/17 @ 1230 PM Sitagliptin Phosphate (Januvia) 100 MG TABLET 1 Tablet ORAL DAILY Qty = 30 No Refills Comments: NOT GIVEN Empagliflozin (Jardiance) 10 MG TABLET 1 Tablet ORAL DAILY Qty = 30 No Refills Comments: NOT GIVEN Copies To: WAYNE DAVIES,ZI Rincon; LIZA DAVIES,MYL; SINTIA DAVIES,PAO Attending MD Review Statement Documenting Attending: WILLIAM DAVIES,CHIO
== END 2017-03-19 13:55 | disposition home health service (06) | DRG 292 ==
LOC: ERH 08:55 → 1NO 15:27 → ERHI 15:27 → 1NO 15:27 → ENRESERV 16:57 → 1NO 18:33 → ENPENDDIS 03-19 11:10 → 1NO 03-19 13:55
PROVIDERS: Emergency Medicine; Internal Medicine; ADMIT Nuclear Medicine Nuclear Cardiology
DX: I11.0 Hypertensive heart disease with heart failure (principal); I48.1 Persistent atrial fibrillation; I47.2 Ventricular tachycardia; E11.65 Type 2 diabetes mellitus with hyperglycemia; I42.9 Cardiomyopathy, unspecified; I08.1 Rheumatic disorders of both mitral and tricuspid valves; I50.23 Acute on chronic systolic (congestive) heart failure; Z79.01 Long term (current) use of anticoagulants; I25.10 Atherosclerotic heart disease of native coronary artery without angina pectoris; E78.5 Hyperlipidemia, unspecified; Z95.810 Presence of automatic (implantable) cardiac defibrillator; Z79.84 Long term (current) use of oral hypoglycemic drugs
CPT/HCPCS: 1NSP; 36415; 82436; 87040; 93005; 93010; 93306; 96374; 99291; J1815; J1940; J3490

== ENCOUNTER 2018-06-11 11:15 | Emergency (ER) | payer OTHER, MEDICARE ==
[~2018-06-11] VITALS: Ht 160 cm; Wt 72.6 kg
[~2018-06-11 11:15] MED LIST: ALDACTONE25 MG PO; AMARYL4 M1 PO; ATORVASTATIN CA20 M1 PO; CARDIZEM CD240 M1 PO; CARTIA XT240 M1 PO; CARVEDILOL25 M1 PO; DIOVAN320 M1 PO; ESTRACE42.5 GM VG; JANUMET 50-1,01 EACH PO; JANUVIA100 M1 PO; JARDIANCE10 M1 PO; LASIX20 M1 PO; LASIX40 M1 PO; XARELTO20 M2 PO
[2018-06-11 11:24] VITALS: BP 100/60
[2018-06-11 11:49] LABS: ABSOLUTE BASOPHIL COUNT 0 /CUMM (0.0-0.2); ABSOLUTE EOSINOPHIL COUNT 0.2 /CUMM (0.0-0.7); ABSOLUTE GRANULOCYTE CT 5.6 /CUMM (1.4-6.5); ABSOLUTE LYMPH COUNT 1.6 /CUMM (1.2-3.4); ABSOLUTE MONOCYTE COUNT 1.2 /CUMM (0.10-0.60); BASOPHIL % 0.3 % (0.0-2.0); EOSINOPHIL % 2.8 % (0-5); HEMATOCRIT 40.4 % (37-47); MEAN CORPUSCULAR HGB 29.3 PG (27.0-31.0); MEAN CORPUSCULAR HGB CONC 34.6 G/DL (33.0-37.0); MEAN CORPUSCULAR VOLUME 84.6 FL (81.0-99.0); PLATELET COUNT 248 /CUMM (130-400); RBC DISTRIBUTION WIDTH 12.5 % (11.5-14.5); RED BLOOD CELL CT 4.78 /CUMM (4.20-5.40); WHITE BLOOD CELL COUNT 8.6 /CUMM (4.8-10.8)
--- NOTE | 2018-06-11 12:37 | RADIOLOGY REPORT ---
EXAMINATION: XR CHEST CLINICAL INFORMATION: Chest congestion, cough. COMPARISON: Chest done on 03/15/2017. TECHNIQUE: 2 views of the chest were obtained. FINDINGS: Both lungs are symmetrically expanded and are clear. The cardiomediastinal silhouette is within normal limits. There is no pleural effusion present. Triple lead AICD device is present, appear intact. Multilevel degenerative spondylosis related changes are noted in the spine. Previously documented presumed CHF seen on 03/15/2017 showed interval resolution. IMPRESSION: No acute cardiopulmonary disease.
[2018-06-11] MEDS ORDERED: ZITHROMAX250 M2 PO (13:55)
--- NOTE | 2018-06-11 13:56 | ED INFLUENZA/URI COMPLAINT ---
History of Present Illness General Chief Complaint: Upper Respiratory Sx/Fever Stated Complaint: SENT BY YIFAN FOR EVAL OF UPPER RESP, ?CHF Source: patient Exam Limitations: no limitations Vital Signs & Intake/Output Vital Signs & Intake/Output Vital Signs Date Time Temp Pulse Resp B/P B/P Pulse O2 O2 Flow FiO2 Mean Ox Delivery Rate 06/11 1124 98.3 63 18 100/60 98 Room Air Allergies Coded Allergies: MDX - Broccoli (BROCCOLI) (UNKNOWN 02/11/14) MDX - Cabbage (CABBAGE) (UNKNOWN 02/11/14) MDX - [place] (CUCUMBER) (UNKNOWN 02/11/14) Reconcile Medications Atorvastatin Calcium 20 MG TABLET 20 MG PO 1700 HLD Azithromycin (Zithromax) 250 MG TABLET 1 DP PO AD BRONCHITIS 2 the first day followed by 1 for days 2-5 Carvedilol 25 MG TABLET 2 TAB PO BID Cardiomyopathy Diltiazem HCl (Cartia Xt) 240 MG CAP.ER.24H 1 TAB PO DAILY afib (Reported) Empagliflozin (Jardiance) 10 MG TABLET 1 TAB PO DAILY blood sugars Estradiol (Estrace) 0.01 % CREAM.APPL 1 GM VG QW HORMONE (Reported) Furosemide (Lasix) 40 MG TABLET 40 MG PO DAILY cardiomyopathy/heart failure Glimepiride (Amaryl) 4 MG TABLET 1 TAB PO DAILY DM (Reported) Rivaroxaban (Xarelto) 20 MG TABLET 1 TAB PO AT BEDTIME afib (Reported) with food Sitagliptin Phosphate (Januvia) 100 MG TABLET 1 TAB PO DAILY blood sugars Spironolactone (Aldactone) 25 MG TABLET 12.5 MG PO DAILY systolic heart failure/HTN Valsartan (Diovan) 320 MG TABLET 1 TAB PO DAILY htn (Reported) Triage Note: 77 YO FEMALE SENT TO ER BY SHELBI SAHA FOR EVAL OF PRODUCTIVE COUGH. DENIES SOB. DENIES CHEST PAIN. EKG COMPELTED ON ARRIVAL. REPORTS SPUTUM IS YELLOWISH-GREEN. Triage Nurses Notes Reviewed? yes Onset: Gradual Duration: day(s): Timing: recent history Severity: moderate HPI: 77-year-old female with history of hypertension, coronary disease, pacemaker, diabetes presents to emergency department complaining of cough productive of yellow/green sputum for the past 3 days. Patient went to her primary care doctor and was referred here for further assessment. Patient says she has had bronchitis and she has been admitted in the past for the symptoms however states at that time she was experiencing significant shortness of breath. Patient states currently she does not have dyspnea. She denies chest pain, fevers, chills, abdominal pain, vomiting. (Tia Wolf) Past History Travel History Traveled to [place] past 21 day No Medical History Any Pertinent Medical History? 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 Relation not specified for: FH: myocardial infarction Hx Contributory? No (Tia Wolf) Review of Systems Review of Systems Constitutional: Reports: no symptoms. EENTM: Reports: no symptoms. Respiratory: Reports: see HPI. Cardiovascular: Reports: no symptoms. GI: Reports: no symptoms. Genitourinary: Reports: no symptoms. Musculoskeletal: Reports: no symptoms. Skin: Reports: no symptoms. Neurological/Psychological: Reports: no symptoms. Hematologic/Endocrine: Reports: no symptoms. Immunologic/Allergic: Reports: no symptoms. All Other Systems: Reviewed and Negative (Tia Wolf) Physical Exam Physical Exam General Appearance: well developed/nourished, no apparent distress, alert, awake Head: atraumatic, normal appearance Eyes: Bilateral: normal appearance. Ears, Nose, Throat: moist mucous membrane, hearing grossly normal, pharynx normal Neck: normal inspection, supple, full range of motion Respiratory: normal breath sounds, no respiratory distress, lungs clear Cardiovascular: regular rate/rhythm, normal peripheral pulses Peripheral Pulses: 2+ radial (R), 2+ radial (L) Back: normal inspection, normal range of motion Extremities: normal inspection, normal range of motion Neurologic/Psych: awake, alert, oriented x 3 Skin: intact, normal color, warm/dry Core Measures Sepsis Present: No Sepsis Focused Exam Completed? No (Bee BEE,Tia Silva) Progress Differential Diagnosis: pneumonia, pharyngitis, BRONCHITIS, CHF, ACS, VIRAL SYNDROME Plan of Care: Orders Procedure Date/time Status TROPONIN LEVEL 06/11 112 Complete COMPREHENSIVE METABOLIC PANEL 06/11 1121 Complete CBC WITHOUT DIFFERENTIAL 06/11 1121 Complete B-TYPE NATRIURETIC PEP (BNP) 06/11 1121 Complete EKG 06/11 1118 Active Laboratory Tests 06/11/18 1132: Anion Gap 12, Estimated GFR > 60, BUN/Creatinine Ratio 18.8, Glucose 232 H, Calcium 9.1, Total Bilirubin 0.6, AST 18, ALT 25, Alkaline Phosphatase 71, Troponin I < 0.01, Xsz-G-Zcpnzlwdplp Pept 1250 H, Total Protein 6.7, Albumin 3.7, Globulin 3.0, Albumin/Globulin Ratio 1.2, CBC w Diff NO MAN DIFF REQ, RBC 4.78, MCV 84.6, MCH 29.3, MCHC 34.6, RDW 12.5, MPV 9.0, Gran % 65.0, Lymphocytes % 18.1 L, Monocytes % 13.8 H, Eosinophils % 2.8, Basophils % 0.3, Absolute Granulocytes 5.6, Absolute Lymphocytes 1.6, Absolute Monocytes 1.2 H, Absolute Eosinophils 0.2, Absolute Basophils 0 The patient has no active chest pain or shortness of breath. EKG is stable compared to previous studies. Her labs are stable, troponin enzyme negative. CXR shows no evidence of PNA or CHF at this time. PAtient's symptoms are most consistent with bronchitis/ upper respiratory tract infection. Patient has stable vital signs, afebrile, no hypoxia. Patient to begin z-pack and follow up with her primary care doctor. The patient was given strict return precautions that she understands and agrees with. The patient was seen and evaluated by Dr. Driver agrees with the plan of care. Diagnostic Imaging: Viewed by Me: Radiology Read. Discussed w/RAD: Radiology Read. CXR Impression: PATIENT: TOMMY BECKWITH PRESENT AGE: 77 PATIENT ACCOUNT NO: [id number] : 40 LOCATION: [facility] ORDERING PHYSICIAN: Iván Driver DO (TBS) SERVICE DATE: 06/11/18-1120 EXAM TYPE: RAD - XRY- CHEST XRAY, TWO VIEWS EXAMINATION: XR CHEST CLINICAL INFORMATION: Chest congestion, cough. COMPARISON: Chest done on 03/15/2017. TECHNIQUE: 2 views of the chest were obtained. FINDINGS: Both lungs are symmetrically expanded and are clear. The cardiomediastinal silhouette is within normal limits. There is no pleural effusion present. Triple lead AICD device is present, appear intact. Multilevel degenerative spondylosis related changes are noted in the spine. Previously documented presumed CHF seen on 03/15/2017 showed interval resolution. IMPRESSION: No acute cardiopulmonary disease. DICTATED BY: Anthony Olivares MD DATE/TIME DICTATED:06/11/181230 WRAPPING CHECKER:BELLO DATE/TIME TRANSCRIBED:06/11/181230 CONFIDENTIAL, DO NOT COPY WITHOUT APPROPRIATE AUTHORIZATION. <Electronically signed in Other Vendor System> SIGNED BY: Anthony Olivares MD 06/11/181236 Initial ED EKG: PACED RHYTHM @76BPM Prior EKG: unchanged (03/15/17) (Bee BEE,Tia Silva) Departure Departure Disposition: HOME OR SELF CARE Condition: Stable Clinical Impression Primary Impression: Upper respiratory tract infection Qualifiers: URI type: unspecified URI Qualified Code: J06.9 - Acute upper respiratory infection, unspecified Referrals: Bisi DAVIES,Myl (PCP/Family) Additional Instructions: Take Z-Darvin as prescribed. Follow-up with YOUR primary care doctor. Return if YOU have any worsening symptoms or concerns. Please note that there might be incidental findings in your evaluation that are unrelated to the current emergency department visit. Please notify your primary care doctor about this emergency department visit in order to obtain and review all of the testing performed so that these incidental findings can be monitored as needed. If you had an x-ray performed, please understand that some fractures may not be seen on the initial set of x-rays. If your symptoms persist you might need a repeat set of x-rays to check for such a fracture. If you had a laceration evaluated, please understand that foreign bodies such as glass or wood may not be visible to the naked eye or on plain x-rays. If the wound becomes red, swollen, increasingly more painful or if there is any drainage from the wound, please have it reevaluated by a physician for the possibility of a retained foreign body. If you're unable to follow up as outlined in the discharge instructions please return to the emergency department. Thank you for choosing the [facility] Emergency Department for your care. It was a pleasure to serve you today. Departure Forms: Customer Survey General Discharge Information Prescriptions: Current Visit Scripts Azithromycin (Zithromax) 1 DP PO AD #6 TAB 2 the first day followed by 1 for days 2-5 (Bee BEE,Tia Silva) PA/HARNESS INSTALLER Co-Sign Statement Statement: ED Attending supervision documentation- [x] I saw and evaluated the patient. I have also reviewed all the pertinent lab results and diagnostic results. I agree with the findings and the plan of care as documented in the PA's/HARNESS INSTALLER's documentation. [] I have reviewed the ED Record and agree with the PA's/HARNESS INSTALLER's documentation. [] Additions or exceptions (if any) to the PAs/HARNESS INSTALLER's note and plan are summarized below: [] (Iván Driver DO
== END 2018-06-11 14:07 ==
LOC: ERH 11:15
PROVIDERS: Emergency Medicine
DX: J06.9 Acute upper respiratory infection, unspecified (principal)
CPT/HCPCS: 71046; 93005; 93010